=== PATIENT | male | born 1955 | race Caucasian/White ===

== ENCOUNTER 2017-09-22 16:31 | Inpatient (IN) | payer OTHER, SELFPAY ==
[2017-09-22 16:48] VITALS: BP 155/87; PULSE 80; RESP 18; TEMP 37.2; O2SAT 96
[2017-09-22 18:05] VITALS: BMI 23.1
[2017-09-22 18:19] VITALS: BMI 23.1
--- NOTE | 2017-09-22 18:43 | NURSING ---
PT ARRIVED FROM [facility] , TRANSPORTED BY
--- NOTE | 2017-09-22 19:47 | PCM.HP.STD ---
Problem List (1) Right middle cerebral artery stroke Status: Acute (2) Hemorrhagic cerebrovascular accident (CVA) Status: Acute (3) Acute respiratory failure Status: Acute (4) Pneumonia Status: Acute (5) Atrial fibrillation Status: Chronic (6) Atrial fibrillation with RVR Status: Chronic (7) Headache Status: Chronic (8) Hyperlipidemia Status: Chronic (9) Chronic pain Status: Chronic (10) Major depression Status: Chronic (11) Neuropathic pain Status: Chronic (12) Left hemiplegia Status: Acute (13) Hypertension Status: Chronic (14) Shortness of breath Status: Acute (15) Constipation Status: Acute (16) Thrush Status: Acute (17) Insomnia Status: Acute History of Present Illness Date of Admission: 09/22/17 Chief Complaint: Here for rehabilitation, strengthening, prior to discharge home with spouse. The patient is a 62 year old Male who had abrupt left side neglect 07/16/2017, taken to [facility], diagnosed with right MCA infarct with right M1 occlusion, treated with TPA, transferred to [facility]. His stay there was complicated with hemorrhagic conversion of his CVA, treated with Vitamin K and required decompressive right hemicraniectomy, history of respiratory failure requiring intubation, extubated 07/19/2017, but had to be reintubated a few days later and treated with antibiotics for pneumonia. On 07/23/2017, he had a trach and a PEG placed. During his stay, he was diagnosed with atrial fibrillation, felt to be likely etiology of his cerebrovascular infarct. Initial recommendation was to start anticoagulation on 09/03/2017, but then more recent recommendation moved anticoagulation dates to 4 weeks after stroke with recommendation to start Eliquis on 08/13/2017. He was already on aspirin, which was discontinued. Patient's echo showed EF 55%, no patent foramen ovale. He also had atrial fibrillation with RVR, Diltiazem caused bradycardia, and he was switched to amiodarone. Recommendation to stop amiodarone, transition to low dose Metoprolol for rate control. He was admitted to [facility] for inpatient rehab. 09/22/2017 Admit to TCU for continuation of rehabilitation, strengthening, prior to discharge home with spouse. Past Medical History Past Medical History (Chronic Problems): Chronic Problems Atrial fibrillation (Chronic) Atrial fibrillation with RVR (Chronic) Headache (Chronic) Hyperlipidemia (Chronic) Chronic pain (Chronic) Major depression (Chronic) Neuropathic pain (Chronic) Hypertension (Chronic) Allergies No Known Allergies Allergy (Verified 09/22/17 18:57) Home Medications: Ambulatory Orders Medication Instructions Recorded Acetaminophen 650 mg PO Q6H PRN 09/22/17 Apixaban [Eliquis] 5 mg PO BID 09/22/17 Atorvastatin Calcium 40 mg PO QHS 09/22/17 Famotidine 20 mg PO BID 09/22/17 Hydrocodone/Acetaminophen 1 each PO Q4H PRN PRN 09/22/17 [Hydrocodon-Acetaminophen 5-325] Lidocaine [Lidoderm Patch] 1 patch TOPICAL DAILY 09/22/17 Melatonin 3 mg PO QHS 09/22/17 Ondansetron [Zofran Odt] 4 mg PO Q4H PRN PRN 09/22/17 Polyethylene Glycol 3350 [Miralax] 17 gm PO DAILY 09/22/17 Trazodone HCl 50 mg PO QHS 09/22/17 Surgical History: - - Tracheostomy (discontinued), PEG tube (discontinued), right hemicraniectomy. Psychiatric History: Depression Lives: Spouse/ Significant Other Smoking Status: Never smoker Tobacco Use: Non-smoker Alcohol: None Drugs: None - *Family History Maternal History Items: Heart Disease Paternal History Items: Heart Disease Review of Systems Constitutional: Denies: Chills, Fever, Weight Change HEENT: Denies: Head Aches, Sinus Congestion, Sinus Drainage Cardiovascular: Denies: Chest Pain, Palpitations Respiratory: Denies: Cough, Shortness of breath at rest, Sputum production Gastrointestinal: Reports: Nausea. Denies: Abdominal Pain, Vomiting Genitourinary: Denies: Dysuria Musculoskeletal: Denies: Joint Pain, Joint Tenderness Skin: Denies: Rash, Wounds Neurological: Denies: Numbness, Tingling, Focal weakness Psychiatric: Denies: Anxiety, Depression, Homicidal Ideations, Suicidal Ideations Hematologic/ Lymphatic: Denies: Easy Bruising, Easy Bleeding VTE Information - Inpt Only VTE Present on Admission: No VTE Mechan Device Prophylaxis: Knee High ARIAN Hose VTE Pharm Prophylaxis ordered?: No Reason prophylaxis not ordered:: Treatment Not Indicated Patient Problems: Active and Suspected Problems Right middle cerebral artery stroke (Acute) Hemorrhagic cerebrovascular accident (CVA) (Acute) Acute respiratory failure (Acute) Pneumonia (Acute) Left hemiplegia (Acute) Shortness of breath (Acute) Constipation (Acute) Thrush (Acute) Insomnia (Acute) - Physical Exam General: Alert, Oriented x3, Cooperative HEENT: Atraumatic, PERRLA, EOMI, Normocephalic, - - Right hemicraniectomy defect. Neck: Supple, No JVD, Negative Carotid Bruits Lungs: Clear to auscultation, Normal air movement Cardiovascular: Regular rate, No murmurs Abdomen: Bowel Sounds Present, Soft, Non Tender Extremities: No edema, Capillary Refill Less than 3 Seconds Skin: No rashes, No breakdown Musculoskeletal: No Tenderness to Palpation of Joints or Extremities Neurological: Cranial nerves II-XII grossly intact, - - Left hemiplegia. Psych/Mental Status: Normal Affect, Appropriate Weight: 79.4 kg Body Mass Index (BMI) 23.1 Intake and Output for Last 24 Hours 09/20/17 09/21/17 09/22/17 23:59 23:59 23:59 Output Total 350 / 350 Balance -350 / -350 Assessment/Plan Active and Suspected Problems Right middle cerebral artery stroke (Acute) Hemorrhagic cerebrovascular accident (CVA) (Acute) Acute respiratory failure (Acute) Pneumonia (Acute) Left hemiplegia (Acute) Shortness of breath (Acute) Constipation (Acute) Thrush (Acute) Insomnia (Acute) 62 year old male with below past medical history hospitalized for right MCA stroke, hemorrhagic conversion of stroke after TPA, complicated by respiratory failure requiring intubation, tracheostomy, PEG tube placement, atrial fibrillation with RVR, admitted from [facility] to TCU for continuation of rehabilitation, strengthening, prior to discharge home with spouse. Debility - PT/OT. Cognition - ST. Pain - Tylenol 1000MG Q8H PRN mild pain, [place] 5/325MG 1 tablet QH PRN moderate pain. Bowel - Miralax 17GM daily. Adult immunization - Flushot, then Prevnar 13 and Pneumovax 23 as necessary. DVT prophylaxis - Not necessary, already on Eliquis. Stroke - Eliquis 5MG twice daily. Hyperlipidemia - Atorvastatin 40MG QHS. GERD - Famotidine 20MG BID. Left hip pain - Lidoderm patch 1 patch TD daily. Insomnia - Melatonin 3MG QHS, Trazodone 50MG QHS. Nausea - Zofran 4MG Q4H PRN.
--- NOTE | 2017-09-22 19:59 | HP.PCM_ITS ---
Problem List (1) Right middle cerebral artery stroke Status: Acute (2) Hemorrhagic cerebrovascular accident (CVA) Status: Acute (3) Acute respiratory failure Status: Acute (4) Pneumonia Status: Acute (5) Atrial fibrillation Status: Chronic (6) Atrial fibrillation with RVR Status: Chronic (7) Headache Status: Chronic (8) Hyperlipidemia Status: Chronic (9) Chronic pain Status: Chronic (10) Major depression Status: Chronic (11) Neuropathic pain Status: Chronic (12) Left hemiplegia Status: Acute (13) Hypertension Status: Chronic (14) Shortness of breath Status: Acute (15) Constipation Status: Acute (16) Thrush Status: Acute (17) Insomnia Status: Acute History of Present Illness Date of Admission: 09/22/17 Chief Complaint: Here for rehabilitation, strengthening, prior to discharge home with spouse. The patient is a 62 year old Male who had abrupt left side neglect 07/16/2017, taken to [facility], diagnosed with right MCA infarct with right M1 occlusion, treated with TPA, transferred to [facility]. His stay there was complicated with hemorrhagic conversion of his CVA, treated with Vitamin K and required decompressive right hemicraniectomy, history of respiratory failure requiring intubation, extubated 07/19/2017, but had to be reintubated a few days later and treated with antibiotics for pneumonia. On 07/23/2017, he had a trach and a PEG placed. During his stay, he was diagnosed with atrial fibrillation, felt to be likely etiology of his cerebrovascular infarct. Initial recommendation was to start anticoagulation on 09/03/2017, but then more recent recommendation moved anticoagulation dates to 4 weeks after stroke with recommendation to start Eliquis on 08/13/2017. He was already on aspirin, which was discontinued. Patient's echo showed EF 55%, no patent foramen ovale. He also had atrial fibrillation with RVR, Diltiazem caused bradycardia, and he was switched to amiodarone. Recommendation to stop amiodarone, transition to low dose Metoprolol for rate control. He was admitted to [facility] for inpatient rehab. 09/22/2017 Admit to TCU for continuation of rehabilitation, strengthening, prior to discharge home with spouse. Past Medical History Past Medical History (Chronic Problems): Chronic Problems Atrial fibrillation (Chronic) Atrial fibrillation with RVR (Chronic) Headache (Chronic) Hyperlipidemia (Chronic) Chronic pain (Chronic) Major depression (Chronic) Neuropathic pain (Chronic) Hypertension (Chronic) Allergies No Known Allergies Allergy (Verified 09/22/17 18:57) Home Medications: Ambulatory Orders Medication Instructions Recorded Acetaminophen 650 mg PO Q6H PRN 09/22/17 Apixaban [Eliquis] 5 mg PO BID 09/22/17 Atorvastatin Calcium 40 mg PO QHS 09/22/17 Famotidine 20 mg PO BID 09/22/17 Hydrocodone/Acetaminophen 1 each PO Q4H PRN PRN 09/22/17 [Hydrocodon-Acetaminophen 5-325] Lidocaine [Lidoderm Patch] 1 patch TOPICAL DAILY 09/22/17 Melatonin 3 mg PO QHS 09/22/17 Ondansetron [Zofran Odt] 4 mg PO Q4H PRN PRN 09/22/17 Polyethylene Glycol 3350 [Miralax] 17 gm PO DAILY 09/22/17 Trazodone HCl 50 mg PO QHS 09/22/17 Surgical History: - - Tracheostomy (discontinued), PEG tube (discontinued), right hemicraniectomy. Psychiatric History: Depression Lives: Spouse/ Significant Other Smoking Status: Never smoker Tobacco Use: Non-smoker Alcohol: None Drugs: None - *Family History Maternal History Items: Heart Disease Paternal History Items: Heart Disease Review of Systems Constitutional: Denies: Chills, Fever, Weight Change HEENT: Denies: Head Aches, Sinus Congestion, Sinus Drainage Cardiovascular: Denies: Chest Pain, Palpitations Respiratory: Denies: Cough, Shortness of breath at rest, Sputum production Gastrointestinal: Reports: Nausea. Denies: Abdominal Pain, Vomiting Genitourinary: Denies: Dysuria Musculoskeletal: Denies: Joint Pain, Joint Tenderness Skin: Denies: Rash, Wounds Neurological: Denies: Numbness, Tingling, Focal weakness Psychiatric: Denies: Anxiety, Depression, Homicidal Ideations, Suicidal Ideations Hematologic/ Lymphatic: Denies: Easy Bruising, Easy Bleeding VTE Information - Inpt Only VTE Present on Admission: No VTE Mechan Device Prophylaxis: Knee High ARIAN Hose VTE Pharm Prophylaxis ordered?: No Reason prophylaxis not ordered:: Treatment Not Indicated Patient Problems: Active and Suspected Problems Right middle cerebral artery stroke (Acute) Hemorrhagic cerebrovascular accident (CVA) (Acute) Acute respiratory failure (Acute) Pneumonia (Acute) Left hemiplegia (Acute) Shortness of breath (Acute) Constipation (Acute) Thrush (Acute) Insomnia (Acute) - Physical Exam General: Alert, Oriented x3, Cooperative HEENT: Atraumatic, PERRLA, EOMI, Normocephalic, - - Right hemicraniectomy defect. Neck: Supple, No JVD, Negative Carotid Bruits Lungs: Clear to auscultation, Normal air movement Cardiovascular: Regular rate, No murmurs Abdomen: Bowel Sounds Present, Soft, Non Tender Extremities: No edema, Capillary Refill Less than 3 Seconds Skin: No rashes, No breakdown Musculoskeletal: No Tenderness to Palpation of Joints or Extremities Neurological: Cranial nerves II-XII grossly intact, - - Left hemiplegia. Psych/Mental Status: Normal Affect, Appropriate Weight: 79.4 kg Body Mass Index (BMI) 23.1 Intake and Output for Last 24 Hours 09/20/17 09/21/17 09/22/17 23:59 23:59 23:59 Output Total 350 / 350 Balance -350 / -350 Assessment/Plan Active and Suspected Problems Right middle cerebral artery stroke (Acute) Hemorrhagic cerebrovascular accident (CVA) (Acute) Acute respiratory failure (Acute) Pneumonia (Acute) Left hemiplegia (Acute) Shortness of breath (Acute) Constipation (Acute) Thrush (Acute) Insomnia (Acute) 62 year old male with below past medical history hospitalized for right MCA stroke, hemorrhagic conversion of stroke after TPA, complicated by respiratory failure requiring intubation, tracheostomy, PEG tube placement, atrial fibrillation with RVR, admitted from [facility] to TCU for continuation of rehabilitation, strengthening, prior to discharge home with spouse. * Debility - PT/OT. * Cognition - ST. * Pain - Tylenol 1000MG Q8H PRN mild pain, [place] 5/325MG 1 tablet QH PRN moderate pain. * Bowel - Miralax 17GM daily. * Adult immunization - Flushot, then Prevnar 13 and Pneumovax 23 as necessary. * DVT prophylaxis - Not necessary, already on Eliquis. * Stroke - Eliquis 5MG twice daily. * Hyperlipidemia - Atorvastatin 40MG QHS. * GERD - Famotidine 20MG BID. * Left hip pain - Lidoderm patch 1 patch TD daily. * Insomnia - Melatonin 3MG QHS, Trazodone 50MG QHS. * Nausea - Zofran 4MG Q4H PRN.
[2017-09-22] MEDS: Atorvastatin Calcium 40 MG Tablet PO (21:04)
[2017-09-22] MEDS: traZODone 50 MG Tablet PO (21:05)
[2017-09-22] MEDS: MELATONIN 3 MG TABLET PO (21:05)
[2017-09-22] MEDS: APIXABAN 5 MG TABLET PO (21:05)
[2017-09-22] MEDS: Famotidine 20 MG Tablet PO (21:05)
[2017-09-22 22:00] VITALS: PULSE 76
[2017-09-23] MEDS: Nystatin Powder 15gm Bottle 1 APPLIC TOPICAL ×2 (05:58→21:27)
[2017-09-23] MEDS: Polyethylene Glycol 3350 17 GM PACKET PO (05:58)
[2017-09-23] MEDS: APIXABAN 5 MG TABLET PO ×2 (05:58→17:25)
[2017-09-23] MEDS: Famotidine 20 MG Tablet PO ×2 (05:58→17:24)
[2017-09-23] MEDS: Lidocaine 5% Patch 1 PATCH TOPICAL (06:01)
[2017-09-23] MEDS: HYDROcodone Bitartrate/Apap 5/325 Tablet PO ×2 (06:05→12:12)
[2017-09-23 06:13] LABS: Absolute Lymphocyte Count 1.39 X10^3/ul (0.83-4.51); Absolute Neutrophil Count 2.6 X10^3/uL (2.0-7.7); Basophil# 0.02 X10^3/uL; Basophil% 0.4 % (0-1); Eosinophil# 0.18 X10^3/uL; Eosinophils% 3.7 % (0-5); Hematocrit 39.2 % (40-54); Hemoglobin 13.1 g/dl (13.0-16.5); Lymphocyte # 1.39 X10^3/ul (4.0); Lymphocyte % 28.3 % (19-41); Mean Corp Hgb Conc 33.4 g/gl (32-36); Mean Corpuscular Volume 92.9 fL (80-94); Mean Platelet Vol. 9.6 fl (6.2-12.0); Monocyte# 0.75 X10^3/uL; Monocyte% 15.2 % (0-10); Neutrophil # 2.57 X10^3/uL (2.7-7.7); Neutrophil % 52.2 % (47-70); Platelet Count 258 K/mm3 (150-450); RBC Distribution Width CV 13.4 % (11.6-14.6); RBC Distribution Width SD 44.3 fl (35.1-43.9); Red Blood Count 4.22 M/mm3 (4.6-6.2); White Blood Count 4.9 K/mm3 (4.4-11.0)
[2017-09-23 06:17] LABS: POSITIVE COUNT NO; POSITIVE DIFFERENTIAL NO; POSITIVE MORPHOLOGY NO
[2017-09-23 06:22] LABS: Anion Gap 6 (5-15); BUN 13 mg/dL (7-18); BUN/Creat Ratio 14.2 RATIO (10-20); Calcium,Total 9.8 mg/dL (8.5-10.1); Chloride 100 mmol/L (98-107); Creatinine, Serum 0.91 mg/dL (0.70-1.30); EST Glomerular Filtration Rate 89 mL/min (>60); Est Glom Filt Rate - Afr Amer 107 mL/min (>60); Glucose 95 mg/dL (70-110); Potassium 3.6 mmol/L (3.5-5.1); Sodium Level 139 mmol/L (136-145)
[2017-09-23] MEDS: Tuberculin,Purif.prot.deriv. 50 TU/ML Vial 5 ML ID (12:04)
[2017-09-23] MEDS: Menthol/Lanolin/Calamine/Znox 113 GM Tube 1 APPLIC TOPICAL ×2 (12:06→21:27)
[2017-09-23 16:00] VITALS: BP 139/74; PULSE 70; RESP 18; TEMP 36.9; O2SAT 96
--- NOTE | 2017-09-23 18:15 | NURSING ---
R' C/O BURNING WITH URINATION. NOTIFIED DR TURNER- ORDER FOR UA C+S VIA ST CATH.
[2017-09-23 18:48] LABS: Bacteria 0 SEEN /hpf (None Seen); Mucous, Urine 0 SEEN /hpf (<or=2+); White Blood Cells 0 SEEN /hpf (0-5)
[2017-09-23 18:53] LABS: Color, Urine Yellow (Yellow); Glucose, Dipstick Normal (Normal); Ketone-Dipstick Negative (Negative); Leukocyte Esterase-Dipstick Negative /ul (Negative); Nitrite-Dipstick Negative (Negative); Occult Blood-Urine 10 /ul (Negative); Protein-Dipstick Negative (Negative); Urine Bilirubin Dipstick Negative (Negative); Urine Clarity Sl. Cloudy (Clear); Urine Urobilinogen Normal (Normal)
[2017-09-23 19:00] LABS: Amorphous Sediment 2+ PHOS; Red Blood Cells-Urine 0-5 SEEN /hpf (0-5); Squamous Epithelial Cells - UA 0-5 SEEN /hpf (0-5)
[2017-09-23] MEDS: Ondansetron ODT 4 MG Tablet PO (20:14)
[2017-09-23] MEDS: Atorvastatin Calcium 40 MG Tablet PO (21:24)
[2017-09-23] MEDS: traZODone 50 MG Tablet PO (21:24)
[2017-09-23] MEDS: MELATONIN 3 MG TABLET PO (21:24)
[2017-09-24] MEDS: Polyethylene Glycol 3350 17 GM PACKET PO (05:34)
[2017-09-24] MEDS: Lidocaine 5% Patch 1 PATCH TOPICAL (05:37)
[2017-09-24] MEDS: Famotidine 20 MG Tablet PO ×2 (05:37→18:09)
[2017-09-24] MEDS: APIXABAN 5 MG TABLET PO ×2 (05:37→18:09)
[2017-09-24] MEDS: Nystatin Powder 15gm Bottle 1 APPLIC TOPICAL ×2 (05:43→22:15)
[2017-09-24] MEDS: Menthol/Lanolin/Calamine/Znox 113 GM Tube 1 APPLIC TOPICAL ×3 (05:43→22:14)
[2017-09-24] MEDS: HYDROcodone Bitartrate/Apap 5/325 Tablet PO ×2 (09:04→18:16)
[2017-09-24] MEDS: Ondansetron ODT 4 MG Tablet PO ×2 (09:10→18:16)
[2017-09-24] MEDS: Acetaminophen 500 MG Tablet 1000 MG PO (11:34)
--- NOTE | 2017-09-24 12:42 | NURSING ---
Pt c/o feeling constipated, last BM 09/20/17, Dr. Fernández updated, N.O. for Mag Citrate, pt aware.
--- NOTE | 2017-09-24 12:47 | CASEMGMT ---
Insurance Clinical information faxed. Pending continued stay approval at this time. Auth#[id number] Christal TERRAZAS, HEAD PORTER
[2017-09-24] MEDS: Magnesium Citrate 300 ML PO (12:53)
--- NOTE | 2017-09-24 15:10 | RAD_ITS ---
STUDY: X-RAY - LEFT SHOULDER REASON FOR EXAM: Male, 62 years old. Shoulder pain. TECHNIQUE: 2 view(s) of the shoulder. COMPARISON: None. FINDINGS: Normal glenohumeral articulation. There is degenerative arthrosis of the acromioclavicular joint without inferior osseous spur formation. Normal acromion. Normal humeral head and visualized proximal humerus. The soft tissue structures are unremarkable. Increased markings at the left lung base suggestive of atelectasis. RAD/Shoulder min 2 Views IMPRESSION: Degenerative changes of the acromioclavicular joint. Electronically Signed: Eb Rogel MD at 15:30 EST Tel [phone], Service support ,
[2017-09-24 16:00] VITALS: BP 146/80; PULSE 77; RESP 18; TEMP 37.1; O2SAT 92
[2017-09-24] MEDS: Atorvastatin Calcium 40 MG Tablet PO (22:09)
[2017-09-24] MEDS: MELATONIN 3 MG TABLET PO (22:09)
[2017-09-24] MEDS: traZODone 50 MG Tablet PO (22:09)
[2017-09-25] MEDS: HYDROcodone Bitartrate/Apap 5/325 Tablet PO ×3 (00:08→17:11)
[2017-09-25] MEDS: Polyethylene Glycol 3350 17 GM PACKET PO (06:31)
[2017-09-25] MEDS: Lidocaine 5% Patch 1 PATCH TOPICAL (06:33)
[2017-09-25] MEDS: Famotidine 20 MG Tablet PO ×2 (06:33→17:12)
[2017-09-25] MEDS: APIXABAN 5 MG TABLET PO ×2 (06:33→17:11)
[2017-09-25] MEDS: Nystatin Powder 15gm Bottle 1 APPLIC TOPICAL ×2 (06:33→21:43)
[2017-09-25] MEDS: Menthol/Lanolin/Calamine/Znox 113 GM Tube 1 APPLIC TOPICAL ×3 (06:33→21:42)
[2017-09-25] MEDS: Bisacodyl 10 MG Suppository RECTAL (13:13)
[2017-09-25 15:54] VITALS: BP 132/67; PULSE 84; RESP 16; TEMP 36.4; O2SAT 95
[2017-09-25] MEDS: Atorvastatin Calcium 40 MG Tablet PO (21:41)
[2017-09-25] MEDS: traZODone 50 MG Tablet PO (21:42)
[2017-09-25] MEDS: MELATONIN 3 MG TABLET PO (21:42)
[2017-09-26] MEDS: Lidocaine 5% Patch 1 PATCH TOPICAL (06:21)
[2017-09-26] MEDS: Famotidine 20 MG Tablet PO ×2 (06:21→16:48)
[2017-09-26] MEDS: Polyethylene Glycol 3350 17 GM PACKET PO (06:21)
[2017-09-26] MEDS: APIXABAN 5 MG TABLET PO ×2 (06:21→16:48)
[2017-09-26] MEDS: Nystatin Powder 15gm Bottle 1 APPLIC TOPICAL ×2 (06:22→21:00)
[2017-09-26] MEDS: Menthol/Lanolin/Calamine/Znox 113 GM Tube 1 APPLIC TOPICAL ×3 (06:22→21:00)
--- NOTE | 2017-09-26 11:51 | NURSING ---
Dr. Fernández aware of final urine culture results, NNO
[2017-09-26 16:00] VITALS: BP 135/75; PULSE 74; RESP 20; TEMP 36.7; O2SAT 96
[2017-09-26] MEDS: traZODone 50 MG Tablet PO (21:00)
[2017-09-26] MEDS: Atorvastatin Calcium 40 MG Tablet PO (21:00)
[2017-09-26] MEDS: MELATONIN 3 MG TABLET PO (21:00)
[2017-09-26] MEDS: HYDROcodone Bitartrate/Apap 5/325 Tablet PO (22:50)
[2017-09-27] MEDS: Ondansetron ODT 4 MG Tablet PO ×3 (01:31→20:46)
[2017-09-27] MEDS: HYDROcodone Bitartrate/Apap 5/325 Tablet PO ×2 (04:46→20:37)
[2017-09-27] MEDS: Menthol/Lanolin/Calamine/Znox 113 GM Tube 1 APPLIC TOPICAL ×3 (04:49→20:38)
[2017-09-27] MEDS: Nystatin Powder 15gm Bottle 1 APPLIC TOPICAL ×2 (04:50→20:38)
[2017-09-27] MEDS: Lidocaine 5% Patch 1 PATCH TOPICAL (04:50)
[2017-09-27] MEDS: Polyethylene Glycol 3350 17 GM PACKET PO (04:50)
[2017-09-27] MEDS: APIXABAN 5 MG TABLET PO ×2 (04:50→16:58)
[2017-09-27] MEDS: Famotidine 20 MG Tablet PO ×2 (04:50→16:58)
--- NOTE | 2017-09-27 10:49 | NURSING ---
dr madden in to speak with pt this AM regarding d/t insomnia. Dr madden added neurontin.
--- NOTE | 2017-09-27 14:55 | CHAPLAIN ---
Type of Pastoral Visit _x__ Initial Visit ___ Follow-up Visit ___ On-call Visit ___ General Patient Visit ___ Spiritual Assessment ___ Family Conference ___ Bereavement ___ Rapid Response ___ Code Blue ___ Other (describe below) Pastoral Care Referral From _x__ Patient ___ Family ___ Nurse ___ Physician ___ Inspector Missile ___ Photo Mask Inspector ___ Other (describe below) Sacrament/Intervention ___ Active listening ___ Anointing ___ Taoism ___ Bereavement ___ Communion ___ Nessa exploration ___ ___ Life review ___ Prayer ___ Reconciliation ___ Sacrament of Sick _x__ Supportive presence ___ Wedding ___ Other (describe below) Pastoral Comments visitors were in room including spouse; made introduction; pt and family are agreeable for future visits and support
[2017-09-27 15:38] VITALS: BP 122/69; PULSE 72; RESP 18; TEMP 36.6; O2SAT 94
--- NOTE | 2017-09-27 16:21 | CASEMGMT ---
Insurance Continued stay approved with next update due on 10/01/17. Auth#[id number] Christal TERRAZAS, BEHAVIOR ANALYST
[2017-09-27] MEDS: Atorvastatin Calcium 40 MG Tablet PO (20:37)
[2017-09-27] MEDS: MELATONIN 3 MG TABLET PO (20:37)
[2017-09-27] MEDS: Gabapentin 300 MG Capsule PO (20:37)
[2017-09-27] MEDS: traZODone 50 MG Tablet PO (20:37)
[2017-09-28] MEDS: APIXABAN 5 MG TABLET PO ×2 (05:30→17:21)
[2017-09-28] MEDS: Famotidine 20 MG Tablet PO ×2 (05:30→17:21)
[2017-09-28] MEDS: Polyethylene Glycol 3350 17 GM PACKET PO (05:30)
[2017-09-28] MEDS: Lidocaine 5% Patch 1 PATCH TOPICAL (05:31)
[2017-09-28] MEDS: Menthol/Lanolin/Calamine/Znox 113 GM Tube 1 APPLIC TOPICAL ×3 (05:31→21:02)
[2017-09-28] MEDS: Nystatin Powder 15gm Bottle 1 APPLIC TOPICAL ×2 (05:31→21:02)
[2017-09-28] MEDS: HYDROcodone Bitartrate/Apap 5/325 Tablet PO ×3 (09:19→20:52)
--- NOTE | 2017-09-28 10:54 | PCM.PN.RX ---
<Zheng Cochran D - Last Filed: 09/28/17 10:54> Progress Note - Pharmacy Subjective: TCU Admission Objective: Allergies No Known Allergies Allergy (Verified 09/22/17 18:57) Home Medications Medication Instructions Recorded Acetaminophen 650 mg PO Q6H PRN 09/22/17 Apixaban [Eliquis] 5 mg PO BID 09/22/17 Atorvastatin Calcium 40 mg PO QHS 09/22/17 Famotidine 20 mg PO BID 09/22/17 Hydrocodone/Acetaminophen 1 each PO Q4H PRN PRN 09/22/17 [Hydrocodon-Acetaminophen 5-325] Lidocaine [Lidoderm Patch] 1 patch TOPICAL DAILY 09/22/17 Melatonin 3 mg PO QHS 09/22/17 Ondansetron [Zofran Odt] 4 mg PO Q4H PRN PRN 09/22/17 Polyethylene Glycol 3350 [Miralax] 17 gm PO DAILY 09/22/17 Trazodone HCl 50 mg PO QHS 09/22/17 Current Medications Generic Name Dose Route Start Last Admin Trade Name Freq PRN Reason Stop Dose Admin Acetaminophen 1,000 mg 09/22/17 20:24 09/24/17 11:34 Tylenol PO 1,000 mg Q8H PRN Administration MILD PAIN (1-3/10) Hydrocodone Bitart/Acetaminophen 1 tablet 09/22/17 16:57 09/28/17 09:19 Bedrock 5mg-325mg PO 1 tablet Q4H PRN PRN Administration MODERATE PAIN (4-5/10) Apixaban 5 mg 09/22/17 18:00 09/28/17 05:30 Eliquis PO 5 mg BID JOAN Administration Atorvastatin Calcium 40 mg 09/22/17 22:00 09/27/17 20:37 Lipitor PO 40 mg QHS JOAN Administration Bisacodyl 10 mg 09/25/17 08:13 09/25/17 13:13 Dulcolax RECTAL 10 mg DAILY PRN Administration Constipation Calamine/Phenol 1 applic 09/23/17 06:00 09/28/17 05:31 Calmoseptine Ointment TOPICAL 1 applicatio TID JOAN Administration Protocol Famotidine 20 mg 09/22/17 18:00 09/28/17 05:30 Pepcid PO 20 mg BID JOAN Administration Gabapentin 300 mg 09/27/17 22:00 09/27/17 20:37 Neurontin PO 300 mg QHS JOAN Administration Lidocaine 1 patch 09/28/17 06:00 09/28/17 05:31 Lidoderm Patch TOPICAL 1 patch DAILY JOAN Administration Protocol Melatonin 3 mg 09/22/17 22:00 09/27/17 20:37 Melatonin PO 3 mg QHS JOAN Administration Menthol 1 applic 09/25/17 08:41 09/26/17 12:18 Bengay Vanishing Scent TOPICAL 1 applic TID PRN PRN Administration PAIN Nystatin 1 applic 09/23/17 06:00 09/28/17 05:31 Mycostatin Powder TOPICAL 1 applicatio 0600,2200 JOAN Administration Protocol Ondansetron HCl 4 mg 09/22/17 16:57 09/27/17 20:46 Zofran Odt PO 4 mg Q4H PRN PRN Administration NAUSEA Polyethylene Glycol 17 gm 09/23/17 06:00 09/28/17 05:30 Miralax PO 17 gm DAILY JOAN Administration Trazodone HCl 50 mg 09/22/17 22:00 09/27/17 20:37 Desyrel PO 50 mg QHS JOAN Administration Tuberculin PPD 5 tu 09/30/17 10:00 Tubersol, Aplisol, Ppd ID 09/30/17 10:01 X1 ONE Problem List Right middle cerebral artery stroke (Acute) Hemorrhagic cerebrovascular accident (CVA) (Acute) Acute respiratory failure (Acute) Pneumonia (Acute) Atrial fibrillation (Chronic) Atrial fibrillation with RVR (Chronic) Headache (Chronic) Hyperlipidemia (Chronic) Chronic pain (Chronic) Major depression (Chronic) Neuropathic pain (Chronic) Left hemiplegia (Acute) Hypertension (Chronic) Shortness of breath (Acute) Constipation (Acute) Thrush (Acute) Insomnia (Acute) Vital Signs Temp Pulse Resp BP Pulse Ox 97.9 F 72 18 122/69 H 94 09/27/17 15:38 09/27/17 15:38 09/27/17 15:38 09/27/17 15:38 09/27/17 15:38 Oxygen Delivery Method Room Air Weight: 79.4 kg Body Mass Index (BMI) 23.1 Sodium 139 mmol/L (136-145) 09/23/17 05:10 Potassium 3.6 mmol/L (3.5-5.1) 09/23/17 05:10 Chloride 100 mmol/L (98-107) 09/23/17 05:10 Carbon Dioxide 33.0 mmol/L (21.0-32.0) H 09/23/17 05:10 Anion Gap 6 (5-15) 09/23/17 05:10 BUN 13 mg/dL (7-18) 09/23/17 05:10 Creatinine 0.91 mg/dL (0.70-1.30) 09/23/17 05:10 Est GFR (MDRD) Af Amer 107 mL/min (>60) 09/23/17 05:10 Est GFR (MDRD) Non-Af 89 mL/min (>60) 09/23/17 05:10 BUN/Creatinine Ratio 14.2 RATIO (10-20) 09/23/17 05:10 Glucose 95 mg/dL (70-110) 09/23/17 05:10 Assessment/Plan: 1) Pain APAP for mild pain, hydrocodone/APAP for moderate pain, gabapentin, lidocaine patch. Continue to monitor daily pain scores, prn medication use. 2) Stroke Apixaban twice daily, atorvastatin at HS. Hgb/Hct stable at baseline, no lipids or hepatic enzymes in EMR. Continue to monitor renal function, s/s bleeding, lipids, hepatic enzymes. 3) GI Famotidine twice daily, ondansetron prn. Continue to monitor prn medication use, for s/s GI distress. 4) Derm Calmoseptine, Bengay, nystatin powder. Continue to monitor clinically. 5) Sleep Melatonin, trazodone. Continue to monitor for insomnia. Psychotropic Medications: None Unnecessary Medications: None Bowel Regimen: 6) PEG, prn bisacodyl. Continue to monitor prn medication use, for constipation/diarrhea. Date of Note:: 09/28/17 - Provider Comments Provider responsibility: Provider responsible to enter orders to implement recommendations <Gelacio Fernández Chi - Last Filed: 09/28/17 17:52> Progress Note - Pharmacy Subjective: [] Objective: Allergies No Known Allergies Allergy (Verified 09/22/17 18:57) Home Medications Medication Instructions Recorded Acetaminophen 650 mg PO Q6H PRN 09/22/17 Apixaban [Eliquis] 5 mg PO BID 09/22/17 Atorvastatin Calcium 40 mg PO QHS 09/22/17 Famotidine 20 mg PO BID 09/22/17 Hydrocodone/Acetaminophen 1 each PO Q4H PRN PRN 09/22/17 [Hydrocodon-Acetaminophen 5-325] Lidocaine [Lidoderm Patch] 1 patch TOPICAL DAILY 09/22/17 Melatonin 3 mg PO QHS 09/22/17 Ondansetron [Zofran Odt] 4 mg PO Q4H PRN PRN 09/22/17 Polyethylene Glycol 3350 [Miralax] 17 gm PO DAILY 09/22/17 Trazodone HCl 50 mg PO QHS 09/22/17 Current Medications Generic Name Dose Route Start Last Admin Trade Name Freq PRN Reason Stop Dose Admin Acetaminophen 1,000 mg 09/22/17 20:24 09/24/17 11:34 Tylenol PO 1,000 mg Q8H PRN Administration MILD PAIN (1-3/10) Hydrocodone Bitart/Acetaminophen 1 tablet 09/22/17 16:57 09/28/17 14:52 Bedrock 5mg-325mg PO 1 tablet Q4H PRN PRN Administration MODERATE PAIN (4-5/10) Apixaban 5 mg 09/22/17 18:00 09/28/17 17:21 Eliquis PO 5 mg BID JOAN Administration Atorvastatin Calcium 40 mg 09/22/17 22:00 09/27/17 20:37 Lipitor PO 40 mg QHS JOAN Administration Bisacodyl 10 mg 09/25/17 08:13 09/25/17 13:13 Dulcolax RECTAL 10 mg DAILY PRN Administration Constipation Calamine/Phenol 1 applic 09/23/17 06:00 09/28/17 12:21 Calmoseptine Ointment TOPICAL 1 applicatio TID JOAN Administration Protocol Famotidine 20 mg 09/22/17 18:00 09/28/17 17:21 Pepcid PO 20 mg BID JOAN Administration Gabapentin 300 mg 09/27/17 22:00 09/27/17 20:37 Neurontin PO 300 mg QHS JOAN Administration Lidocaine 1 patch 09/28/17 06:00 09/28/17 05:31 Lidoderm Patch TOPICAL 1 patch DAILY JOAN Administration Protocol Melatonin 3 mg 09/22/17 22:00 09/27/17 20:37 Melatonin PO 3 mg QHS JOAN Administration Menthol 1 applic 09/25/17 08:41 02/06/18 12:18 Bengay Vanishing Scent TOPICAL 1 applic TID PRN PRN Administration PAIN Nystatin 1 applic 09/23/17 06:00 09/28/17 05:31 Mycostatin Powder TOPICAL 1 applicatio 0600,2200 JOAN Administration Protocol Ondansetron HCl 4 mg 09/22/17 16:57 09/28/17 12:18 Zofran Odt PO 4 mg Q4H PRN PRN Administration NAUSEA Polyethylene Glycol 17 gm 09/23/17 06:00 09/28/17 05:30 Miralax PO 17 gm DAILY JOAN Administration Trazodone HCl 50 mg 09/22/17 22:00 09/27/17 20:37 Desyrel PO 50 mg QHS JOAN Administration Tuberculin PPD 5 tu 09/30/17 10:00 Tubersol, Aplisol, Ppd ID 09/30/17 10:01 X1 ONE Problem List Chronic pain (Chronic) Hyperlipidemia (Chronic) Headache (Chronic) Atrial fibrillation with RVR (Chronic) Atrial fibrillation (Chronic) Pneumonia (Acute) Acute respiratory failure (Acute) Hemorrhagic cerebrovascular accident (CVA) (Acute) Insomnia (Acute) Thrush (Acute) Constipation (Acute) Shortness of breath (Acute) Hypertension (Chronic) Left hemiplegia (Acute) Neuropathic pain (Chronic) Major depression (Chronic) Right middle cerebral artery stroke (Acute) Vital Signs Temp Pulse Resp BP Pulse Ox 98.3 F 79 18 152/80 H 95 09/28/17 15:19 09/28/17 15:19 09/28/17 15:19 09/28/17 15:19 09/28/17 15:19 Oxygen Delivery Method Room Air Weight: 79.4 kg Body Mass Index (BMI) 23.1 Sodium 139 mmol/L (136-145) 09/23/17 05:10 Potassium 3.6 mmol/L (3.5-5.1) 09/23/17 05:10 Chloride 100 mmol/L (98-107) 09/23/17 05:10 Carbon Dioxide 33.0 mmol/L (21.0-32.0) H 09/23/17 05:10 Anion Gap 6 (5-15) 09/23/17 05:10 BUN 13 mg/dL (7-18) 09/23/17 05:10 Creatinine 0.91 mg/dL (0.70-1.30) 09/23/17 05:10 Est GFR (MDRD) Af Amer 107 mL/min (>60) 09/23/17 05:10 Est GFR (MDRD) Non-Af 89 mL/min (>60) 09/23/17 05:10 BUN/Creatinine Ratio 14.2 RATIO (10-20) 09/23/17 05:10 Glucose 95 mg/dL (70-110) 09/23/17 05:10 Assessment/Plan: Psychotropic Medications: Unnecessary Medications: Bowel Regimen: - Provider Comments Provider responsibility: Provider responsible to enter orders to implement recommendations Provider Comments to Recommendations by Pharmacy: Agree
[2017-09-28] MEDS: Ondansetron ODT 4 MG Tablet PO ×2 (12:18→20:52)
--- NOTE | 2017-09-28 14:51 | CASEMGMT ---
Brief interview for mental status (BIMS) and resident mood interview (PHQ-9) completed on this day. BIMS score 07/07. PHQ-9 score 02/16
[2017-09-28 15:19] VITALS: BP 152/80; PULSE 79; RESP 18; TEMP 36.8; O2SAT 95
[2017-09-28] MEDS: Gabapentin 300 MG Capsule PO (20:51)
[2017-09-28] MEDS: traZODone 50 MG Tablet PO (20:52)
[2017-09-28] MEDS: MELATONIN 3 MG TABLET PO (20:52)
[2017-09-28] MEDS: Atorvastatin Calcium 40 MG Tablet PO (20:52)
[2017-09-29] MEDS: Lidocaine 5% Patch 1 PATCH TOPICAL (06:21)
[2017-09-29] MEDS: Polyethylene Glycol 3350 17 GM PACKET PO (06:21)
[2017-09-29] MEDS: HYDROcodone Bitartrate/Apap 5/325 Tablet PO ×3 (06:21→15:32)
[2017-09-29] MEDS: Famotidine 20 MG Tablet PO ×2 (06:21→17:29)
[2017-09-29] MEDS: APIXABAN 5 MG TABLET PO ×2 (06:22→17:30)
[2017-09-29] MEDS: Nystatin Powder 15gm Bottle 1 APPLIC TOPICAL ×2 (06:33→22:26)
[2017-09-29] MEDS: Menthol/Lanolin/Calamine/Znox 113 GM Tube 1 APPLIC TOPICAL ×3 (06:33→22:25)
[2017-09-29] MEDS: Ondansetron ODT 4 MG Tablet PO ×2 (07:10→18:38)
--- NOTE | 2017-09-29 10:58 | CASEMGMT ---
Plan of care meeting held. Resident present as well as resident family. No discharge date set at this time. Resident plans to continue with further care and treatment on the Transitional Care Unit. Resident hopes to be able to return home with spouse at time of discharge. Support given. Will continue to follow. Christal TERRAZAS, MOTOR TUNE UP SPECIALIST
[2017-09-29 16:00] VITALS: BP 146/92; PULSE 81; RESP 20; TEMP 37.3; O2SAT 96
--- NOTE | 2017-09-29 18:21 | NURSING ---
Per otologist change diet to cardiac
[2017-09-29] MEDS: Gabapentin 300 MG Capsule PO (22:22)
[2017-09-29] MEDS: traZODone 50 MG Tablet PO (22:22)
[2017-09-29] MEDS: Atorvastatin Calcium 40 MG Tablet PO (22:22)
[2017-09-29] MEDS: MELATONIN 3 MG TABLET PO (22:26)
[2017-09-30 05:54] LABS: Absolute Lymphocyte Count 1.34 X10^3/ul (0.83-4.51); Basophil# 0.03 X10^3/uL; Basophil% 0.6 % (0-1); Eosinophil# 0.18 X10^3/uL; Eosinophils% 3.3 % (0-5); Hematocrit 42.2 % (40-54); Lymphocyte # 1.34 X10^3/ul (4.0); Lymphocyte % 24.7 % (19-41); Mean Corp Hgb Conc 33.2 g/gl (32-36); Mean Corpuscular Hgb 30.7 pg (27.0-32.0); Mean Corpuscular Volume 92.5 fL (80-94); Mean Platelet Vol. 9.7 fl (6.2-12.0); Monocyte# 0.86 X10^3/uL; Monocyte% 15.8 % (0-10); Neutrophil # 2.99 X10^3/uL (2.7-7.7); Platelet Count 279 K/mm3 (150-450); RBC Distribution Width CV 13.2 % (11.6-14.6); RBC Distribution Width SD 44.1 fl (35.1-43.9); Red Blood Count 4.56 M/mm3 (4.6-6.2); White Blood Count 5.4 K/mm3 (4.4-11.0)
[2017-09-30] MEDS: Polyethylene Glycol 3350 17 GM PACKET PO (05:56)
[2017-09-30] MEDS: APIXABAN 5 MG TABLET PO ×2 (05:57→18:21)
[2017-09-30] MEDS: Lidocaine 5% Patch 1 PATCH TOPICAL (05:57)
[2017-09-30] MEDS: Famotidine 20 MG Tablet PO ×2 (05:57→18:21)
[2017-09-30 06:02] LABS: POSITIVE COUNT NO; POSITIVE DIFFERENTIAL NO; POSITIVE MORPHOLOGY NO
[2017-09-30] MEDS: Nystatin Powder 15gm Bottle 1 APPLIC TOPICAL ×2 (06:06→21:07)
[2017-09-30] MEDS: Menthol/Lanolin/Calamine/Znox 113 GM Tube 1 APPLIC TOPICAL ×3 (06:06→21:07)
[2017-09-30 06:21] LABS: Anion Gap 7 (5-15); BUN 9 mg/dL (7-18); BUN/Creat Ratio 9.9 RATIO (10-20); Calcium,Total 9.9 mg/dL (8.5-10.1); Chloride 104 mmol/L (98-107); Creatinine, Serum 0.91 mg/dL (0.70-1.30); EST Glomerular Filtration Rate 89 mL/min (>60); Est Glom Filt Rate - Afr Amer 107 mL/min (>60); Glucose 98 mg/dL (74-106); Potassium 3.8 mmol/L (3.5-5.1); Sodium Level 142 mmol/L (136-145)
[2017-09-30] MEDS: HYDROcodone Bitartrate/Apap 5/325 Tablet PO ×2 (11:00→18:20)
[2017-09-30] MEDS: Tuberculin,Purif.prot.deriv. 50 TU/ML Vial 5 ML ID (11:01)
[2017-09-30 16:00] VITALS: BP 153/73; PULSE 77; RESP 20; TEMP 36.6; O2SAT 94
--- NOTE | 2017-09-30 16:42 | CHAPLAIN ---
Type of Pastoral Visit ___ Initial Visit _x__ Follow-up Visit ___ On-call Visit ___ General Patient Visit ___ Spiritual Assessment ___ Family Conference ___ Bereavement ___ Rapid Response ___ Code Blue ___ Other (describe below) Pastoral Care Referral From _x__ Patient _x__ Family ___ Nurse ___ Physician ___ Registered Nurse Hh Case Manager ___ Scalemaker ___ Other (describe below) Sacrament/Intervention _x__ Active listening ___ Anointing ___ Roman Catholic ___ Bereavement ___ Communion _x__ Nessa exploration ___ _x__ Life review _x__ Prayer ___ Reconciliation ___ Sacrament of Sick _x__ Supportive presence ___ Wedding ___ Other (describe below) Pastoral Comments Family members with patient; family says that pt is 'grumpy' today but pt denies it; family is anxious for another surgery to take place in near future; pt says his goal is to gain strength and walk; all hope for the day when pt can go home; pt says that his nessa in God has actually gotten stronger through this; pt is open to future visits
[2017-09-30] MEDS: Gabapentin 300 MG Capsule PO (21:03)
[2017-09-30] MEDS: MELATONIN 3 MG TABLET PO (21:03)
[2017-09-30] MEDS: Atorvastatin Calcium 40 MG Tablet PO (21:03)
[2017-09-30] MEDS: traZODone 50 MG Tablet PO (21:03)
[2017-10-01] MEDS: Polyethylene Glycol 3350 17 GM PACKET PO (06:24)
[2017-10-01] MEDS: Lidocaine 5% Patch 1 PATCH TOPICAL (06:27)
[2017-10-01] MEDS: Famotidine 20 MG Tablet PO ×2 (06:27→17:18)
[2017-10-01] MEDS: APIXABAN 5 MG TABLET PO ×2 (06:27→17:19)
[2017-10-01] MEDS: Menthol/Lanolin/Calamine/Znox 113 GM Tube 1 APPLIC TOPICAL ×3 (06:28→21:57)
[2017-10-01] MEDS: Nystatin Powder 15gm Bottle 1 APPLIC TOPICAL ×2 (06:28→21:56)
[2017-10-01] MEDS: HYDROcodone Bitartrate/Apap 5/325 Tablet PO ×3 (09:33→23:33)
[2017-10-01] MEDS: Ondansetron ODT 4 MG Tablet PO ×2 (10:05→22:09)
--- NOTE | 2017-10-01 10:07 | NURSING ---
R' C/O NAUSEA AFTER TAKING NORCO. ZOFRAN GIVEN AT THIS TIME. WILL MONITOR
--- NOTE | 2017-10-01 13:31 | CASEMGMT ---
Insurance Clinical information faxed. Pending continued stay approval at this time. Auth#[id number] Christal TERRAZAS, ENTERTAINMENT PRODUCTION PROFESSIONAL
[2017-10-01 16:11] VITALS: BP 155/89; PULSE 85; RESP 16; TEMP 36.5; O2SAT 95
--- NOTE | 2017-10-01 16:25 | NURSING ---
UPDATED DR. TURNER OF R' INCREASING BP READINGS. ORDER TO START ON LOSARTAN 100MG/DAY, FIRST DOSE NOW. WILL UPDATE R'.
[2017-10-01] MEDS: Losartan Potassium 100 MG Tablet PO (17:18)
[2017-10-01] MEDS: Acetaminophen 500 MG Tablet 1000 MG PO (17:21)
[2017-10-01] MEDS: traZODone 50 MG Tablet PO (21:56)
[2017-10-01] MEDS: Gabapentin 300 MG Capsule PO (21:56)
[2017-10-01] MEDS: MELATONIN 3 MG TABLET PO (21:56)
[2017-10-01] MEDS: Atorvastatin Calcium 40 MG Tablet PO (21:56)
[2017-10-01 22:00] VITALS: RESP 15
[2017-10-02] MEDS: APIXABAN 5 MG TABLET PO ×2 (06:17→17:22)
[2017-10-02] MEDS: HYDROcodone Bitartrate/Apap 5/325 Tablet PO ×4 (06:18→21:39)
[2017-10-02] MEDS: Losartan Potassium 100 MG Tablet PO (06:18)
[2017-10-02] MEDS: Famotidine 20 MG Tablet PO ×2 (06:18→17:22)
[2017-10-02] MEDS: Menthol/Lanolin/Calamine/Znox 113 GM Tube 1 APPLIC TOPICAL ×3 (06:19→21:46)
[2017-10-02] MEDS: Lidocaine 5% Patch 1 PATCH TOPICAL (06:19)
[2017-10-02] MEDS: Polyethylene Glycol 3350 17 GM PACKET PO (06:19)
[2017-10-02] MEDS: Nystatin Powder 15gm Bottle 1 APPLIC TOPICAL ×2 (06:20→21:47)
[2017-10-02] MEDS: Ondansetron ODT 4 MG Tablet PO ×2 (13:09→21:40)
[2017-10-02 16:00] VITALS: BP 116/66; PULSE 77; RESP 20; TEMP 37.1; O2SAT 94
[2017-10-02] MEDS: traZODone 50 MG Tablet PO (21:39)
[2017-10-02] MEDS: Gabapentin 300 MG Capsule PO (21:39)
[2017-10-02] MEDS: MELATONIN 3 MG TABLET PO (21:39)
[2017-10-02] MEDS: Atorvastatin Calcium 40 MG Tablet PO (21:39)
[2017-10-03] MEDS: Losartan Potassium 100 MG Tablet PO (06:34)
[2017-10-03] MEDS: Famotidine 20 MG Tablet PO ×2 (06:34→18:35)
[2017-10-03] MEDS: Ondansetron ODT 4 MG Tablet PO ×2 (06:34→21:58)
[2017-10-03] MEDS: HYDROcodone Bitartrate/Apap 5/325 Tablet PO ×2 (06:34→21:58)
[2017-10-03] MEDS: APIXABAN 5 MG TABLET PO ×2 (06:34→18:35)
[2017-10-03] MEDS: Lidocaine 5% Patch 1 PATCH TOPICAL (06:35)
[2017-10-03] MEDS: Polyethylene Glycol 3350 17 GM PACKET PO (06:35)
[2017-10-03] MEDS: Menthol/Lanolin/Calamine/Znox 113 GM Tube 1 APPLIC TOPICAL ×3 (06:56→22:03)
[2017-10-03] MEDS: Nystatin Powder 15gm Bottle 1 APPLIC TOPICAL ×2 (06:56→22:07)
[2017-10-03] MEDS: Acetaminophen 500 MG Tablet 1000 MG PO (08:53)
[2017-10-03 16:00] VITALS: BP 104/64; PULSE 84; RESP 20; TEMP 37.1; O2SAT 93
[2017-10-03] MEDS: Gabapentin 300 MG Capsule PO (21:58)
[2017-10-03] MEDS: MELATONIN 3 MG TABLET PO (21:58)
[2017-10-03] MEDS: Atorvastatin Calcium 40 MG Tablet PO (21:58)
[2017-10-03] MEDS: traZODone 50 MG Tablet PO (21:58)
[2017-10-04] MEDS: HYDROcodone Bitartrate/Apap 5/325 Tablet PO ×3 (06:16→17:24)
[2017-10-04] MEDS: Polyethylene Glycol 3350 17 GM PACKET PO (06:16)
[2017-10-04] MEDS: Famotidine 20 MG Tablet PO ×2 (06:16→17:26)
[2017-10-04] MEDS: APIXABAN 5 MG TABLET PO ×2 (06:16→17:26)
[2017-10-04] MEDS: Lidocaine 5% Patch 1 PATCH TOPICAL (06:16)
[2017-10-04] MEDS: Ondansetron ODT 4 MG Tablet PO ×3 (06:16→17:25)
[2017-10-04] MEDS: Losartan Potassium 100 MG Tablet PO (06:16)
[2017-10-04] MEDS: Nystatin Powder 15gm Bottle 1 APPLIC TOPICAL ×2 (06:26→21:11)
[2017-10-04] MEDS: Menthol/Lanolin/Calamine/Znox 113 GM Tube 1 APPLIC TOPICAL ×3 (06:26→21:18)
[2017-10-04 16:00] VITALS: BP 124/73; PULSE 82; RESP 18; TEMP 36.8; O2SAT 96
--- NOTE | 2017-10-04 16:17 | CHAPLAIN ---
Type of Pastoral Visit ___ Initial Visit _x__ Follow-up Visit ___ On-call Visit ___ General Patient Visit ___ Spiritual Assessment ___ Family Conference ___ Bereavement ___ Rapid Response ___ Code Blue ___ Other (describe below) Pastoral Care Referral From _x__ Patient ___ Family ___ Nurse ___ Physician ___ Mine Technician ___ Automatic Lathe Setter ___ Other (describe below) Sacrament/Intervention _x__ Active listening ___ Anointing ___ Voodoo ___ Bereavement ___ Communion ___ Nessa exploration ___ ___ Life review ___ Prayer ___ Reconciliation ___ Sacrament of Sick ___ Supportive presence ___ Wedding ___ Other (describe below) Pastoral Comments brief visit to say cortney; patient would appear to be more optimistic today and spoke about seeing bits of progress
[2017-10-04] MEDS: traZODone 50 MG Tablet PO (21:07)
[2017-10-04] MEDS: Atorvastatin Calcium 40 MG Tablet PO (21:07)
[2017-10-04] MEDS: Gabapentin 300 MG Capsule PO (21:07)
[2017-10-04] MEDS: MELATONIN 3 MG TABLET PO (21:11)
[2017-10-05] MEDS: Famotidine 20 MG Tablet PO ×2 (06:17→16:33)
[2017-10-05] MEDS: HYDROcodone Bitartrate/Apap 5/325 Tablet PO ×3 (06:17→17:30)
[2017-10-05] MEDS: APIXABAN 5 MG TABLET PO ×2 (06:17→16:33)
[2017-10-05] MEDS: Lidocaine 5% Patch 1 PATCH TOPICAL (06:17)
[2017-10-05] MEDS: Losartan Potassium 100 MG Tablet PO (06:17)
[2017-10-05] MEDS: Nystatin Powder 15gm Bottle 1 APPLIC TOPICAL ×2 (06:22→21:18)
[2017-10-05] MEDS: Menthol/Lanolin/Calamine/Znox 113 GM Tube 1 APPLIC TOPICAL ×3 (06:22→21:17)
[2017-10-05] MEDS: Polyethylene Glycol 3350 17 GM PACKET PO (06:22)
[2017-10-05] MEDS: Acetaminophen 500 MG Tablet 1000 MG PO (09:51)
--- NOTE | 2017-10-05 11:31 | MDS.RN ---
Information for the mds was obtained from review of the clinical record, interview of resident, staff, and direct observation of resident's care.
--- NOTE | 2017-10-05 12:25 | NURSING ---
[facility] called and explained that insurance does not cover transportation to appt tomorrow. , Marlena aware & pt aware, family paying up front per [facility] request d/t non-coverage by insurance.
--- NOTE | 2017-10-05 14:55 | NURSING ---
Pt had late shower with occupational therapy, lt hip lidoderm patch loosened, removed d/t not sticking after wet.
[2017-10-05 15:41] VITALS: BP 144/84; PULSE 80; RESP 16; TEMP 36.6; O2SAT 100
--- NOTE | 2017-10-05 16:09 | CASEMGMT ---
Insurance Continued stay approved with next update due on 10/08/17. Silvia at [facility] also communicating that resident skilled benefit is 50 days. Auth#[id number] Christal TERRAZAS, BEAMER HELPER
[2017-10-05] MEDS: MELATONIN 3 MG TABLET PO (21:13)
[2017-10-05] MEDS: Gabapentin 300 MG Capsule PO (21:13)
[2017-10-05] MEDS: traZODone 50 MG Tablet PO (21:13)
[2017-10-05] MEDS: Atorvastatin Calcium 40 MG Tablet PO (21:13)
[2017-10-06] MEDS: Famotidine 20 MG Tablet PO ×2 (05:20→16:27)
[2017-10-06] MEDS: Polyethylene Glycol 3350 17 GM PACKET PO (05:20)
[2017-10-06] MEDS: Losartan Potassium 100 MG Tablet PO (05:20)
[2017-10-06] MEDS: Lidocaine 5% Patch 1 PATCH TOPICAL (05:20)
[2017-10-06] MEDS: APIXABAN 5 MG TABLET PO ×2 (05:20→16:27)
[2017-10-06] MEDS: Nystatin Powder 15gm Bottle 1 APPLIC TOPICAL ×2 (05:28→22:43)
[2017-10-06] MEDS: Menthol/Lanolin/Calamine/Znox 113 GM Tube 1 APPLIC TOPICAL ×3 (05:28→22:42)
[2017-10-06] MEDS: HYDROcodone Bitartrate/Apap 5/325 Tablet PO ×3 (06:54→22:40)
--- NOTE | 2017-10-06 07:41 | NURSING ---
here and riding along with pt in [facility] vehicle via
[2017-10-06] MEDS: Ondansetron ODT 4 MG Tablet PO (14:07)
--- NOTE | 2017-10-06 14:27 | NURSING ---
returned from [facility] in [place], no new orders per .
[2017-10-06 16:00] VITALS: BP 136/79; PULSE 89; RESP 18; TEMP 37.3; O2SAT 93
--- NOTE | 2017-10-06 16:46 | CASEMGMT ---
Brief interview for mental status (BIMS) and resident mood interview (PHQ-9) completed on this day. BIMS score 15/15. PHQ-9 score 02/16
[2017-10-06] MEDS: MELATONIN 3 MG TABLET PO (22:39)
[2017-10-06] MEDS: Atorvastatin Calcium 40 MG Tablet PO (22:39)
[2017-10-06] MEDS: traZODone 50 MG Tablet PO (22:39)
[2017-10-06] MEDS: Gabapentin 300 MG Capsule PO (22:39)
[2017-10-06 23:00] VITALS: RESP 15
[2017-10-07 06:03] LABS: Absolute Neutrophil Count 3.1 X10^3/uL (2.0-7.7); Basophil# 0.02 X10^3/uL; Basophil% 0.4 % (0-1); Eosinophil# 0.14 X10^3/uL; Eosinophils% 2.5 % (0-5); Hematocrit 40.1 % (40-54); Hemoglobin 13.3 g/dl (13.0-16.5); Lymphocyte % 26.5 % (19-41); Mean Corp Hgb Conc 33.2 g/gl (32-36); Mean Corpuscular Hgb 30.8 pg (27.0-32.0); Mean Corpuscular Volume 92.8 fL (80-94); Mean Platelet Vol. 10.2 fl (6.2-12.0); Monocyte# 0.86 X10^3/uL; Monocyte% 15.2 % (0-10); Neutrophil # 3.11 X10^3/uL (2.7-7.7); Neutrophil % 54.9 % (47-70); Platelet Count 260 K/mm3 (150-450); RBC Distribution Width CV 13.2 % (11.6-14.6); RBC Distribution Width SD 43.6 fl (35.1-43.9); Red Blood Count 4.32 M/mm3 (4.6-6.2); White Blood Count 5.7 K/mm3 (4.4-11.0)
[2017-10-07 06:08] LABS: POSITIVE COUNT NO; POSITIVE DIFFERENTIAL NO; POSITIVE MORPHOLOGY NO
[2017-10-07 06:40] LABS: Anion Gap 7 (5-15); BUN 11 mg/dL (7-18); BUN/Creat Ratio 12.4 RATIO (10-20); Calcium,Total 9.9 mg/dL (8.5-10.1); Chloride 101 mmol/L (98-107); Creatinine, Serum 0.88 mg/dL (0.70-1.30); EST Glomerular Filtration Rate 92 mL/min (>60); Est Glom Filt Rate - Afr Amer 111 mL/min (>60); Estimated Creatinine Clearance 95.24 ml/min; Glucose 110 mg/dL (74-106); Potassium 3.8 mmol/L (3.5-5.1); Sodium Level 138 mmol/L (136-145)
[2017-10-07] MEDS: APIXABAN 5 MG TABLET PO ×2 (06:40→16:59)
[2017-10-07] MEDS: Famotidine 20 MG Tablet PO ×2 (06:40→16:59)
[2017-10-07] MEDS: Losartan Potassium 100 MG Tablet PO (06:40)
[2017-10-07] MEDS: Menthol/Lanolin/Calamine/Znox 113 GM Tube 1 APPLIC TOPICAL ×3 (06:40→22:07)
[2017-10-07] MEDS: Polyethylene Glycol 3350 17 GM PACKET PO (06:40)
[2017-10-07] MEDS: Lidocaine 5% Patch 1 PATCH TOPICAL (06:40)
[2017-10-07] MEDS: Nystatin Powder 15gm Bottle 1 APPLIC TOPICAL ×2 (06:41→22:14)
[2017-10-07 10:00] VITALS: PULSE 80; RESP 16
[2017-10-07] MEDS: HYDROcodone Bitartrate/Apap 5/325 Tablet PO ×2 (10:39→17:02)
[2017-10-07] MEDS: Acetaminophen 500 MG Tablet 1000 MG PO (12:36)
[2017-10-07 16:00] VITALS: BP 128/70; PULSE 76; RESP 18; TEMP 37; O2SAT 93
[2017-10-07] MEDS: Gabapentin 300 MG Capsule PO (18:06)
[2017-10-07] MEDS: Atorvastatin Calcium 40 MG Tablet PO (22:03)
[2017-10-07] MEDS: traZODone 50 MG Tablet PO (22:03)
[2017-10-07] MEDS: MELATONIN 3 MG TABLET PO (22:04)
[2017-10-08] MEDS: Lidocaine 5% Patch 1 PATCH TOPICAL (04:48)
[2017-10-08] MEDS: Famotidine 20 MG Tablet PO ×2 (04:48→17:11)
[2017-10-08] MEDS: Menthol/Lanolin/Calamine/Znox 113 GM Tube 1 APPLIC TOPICAL ×3 (04:48→21:54)
[2017-10-08] MEDS: Polyethylene Glycol 3350 17 GM PACKET PO (04:48)
[2017-10-08] MEDS: Losartan Potassium 100 MG Tablet PO (04:48)
[2017-10-08] MEDS: APIXABAN 5 MG TABLET PO ×2 (04:48→17:11)
[2017-10-08] MEDS: Nystatin Powder 15gm Bottle 1 APPLIC TOPICAL ×2 (04:49→21:54)
[2017-10-08] MEDS: Acetaminophen 500 MG Tablet 1000 MG PO ×2 (04:56→11:42)
[2017-10-08] MEDS: Gabapentin 300 MG Capsule PO ×3 (08:35→17:11)
[2017-10-08 10:00] VITALS: PULSE 78; RESP 16; O2SAT 96
--- NOTE | 2017-10-08 10:45 | CASEMGMT ---
Insurance Clinical information faxed. Pending continued stay approval at this time. Auth#[id number] Christal TERRAZAS, AUTOMATIC EMBROIDERY MACHINE TENDER
--- NOTE | 2017-10-08 12:07 | CASEMGMT ---
Insurance Continued stay approved with next update due on 10/15/17. Auth#[id number] Christal TERRAZAS, SPECIAL EVENTS COORDINATOR
--- NOTE | 2017-10-08 12:19 | CASEMGMT ---
Social Work Collaborating with resident and resident spouse on discharge planning. Resident and resident spouse aware insurance has approved more time. This social media content specialist broaching topic of discharge plan in the event that insurance does not approve more time with the next update. Resident spouse hesitant to discuss residential placement, but open to the discussion. Resident spouse reporting to have the primary goal to patient returning home with spouse at time of discharge. Resident spouse aware that resident currently requires 2 people to help him at this time and that there has been limited progress. Resident spouse discouraged with current situation. This social media content specialist offering emotional support. Support given. Will continue to follow. Christal TERRAZAS, APPLICATIONS SYSTEMS ENGINEER
[2017-10-08] MEDS: HYDROcodone Bitartrate/Apap 5/325 Tablet PO ×2 (12:47→17:11)
[2017-10-08 16:00] VITALS: BP 126/78; PULSE 80; RESP 18; TEMP 36.6; O2SAT 94
[2017-10-08] MEDS: traZODone 50 MG Tablet PO (21:49)
[2017-10-08] MEDS: MELATONIN 3 MG TABLET PO (21:49)
[2017-10-08] MEDS: Atorvastatin Calcium 40 MG Tablet PO (21:49)
[2017-10-09] MEDS: APIXABAN 5 MG TABLET PO ×2 (05:07→17:15)
[2017-10-09] MEDS: Polyethylene Glycol 3350 17 GM PACKET PO (05:07)
[2017-10-09] MEDS: HYDROcodone Bitartrate/Apap 5/325 Tablet PO (05:07)
[2017-10-09] MEDS: Losartan Potassium 100 MG Tablet PO (05:07)
[2017-10-09] MEDS: Famotidine 20 MG Tablet PO ×2 (05:07→17:15)
[2017-10-09] MEDS: Lidocaine 5% Patch 1 PATCH TOPICAL (05:08)
[2017-10-09] MEDS: Ondansetron ODT 4 MG Tablet PO (05:08)
[2017-10-09] MEDS: Menthol/Lanolin/Calamine/Znox 113 GM Tube 1 APPLIC TOPICAL ×3 (05:19→20:52)
[2017-10-09] MEDS: Nystatin Powder 15gm Bottle 1 APPLIC TOPICAL ×2 (05:19→20:52)
[2017-10-09] MEDS: Gabapentin 300 MG Capsule PO ×3 (08:11→17:15)
--- NOTE | 2017-10-09 10:41 | NURSING ---
dr Fernández notified of pt maxing his tylenol w/norco. New order for oxyir 10mg Q4 prn severe pain. DC tri
[2017-10-09] MEDS: oxyCODONE 5 MG Tablet 10 MG PO ×2 (11:39→21:02)
[2017-10-09 16:00] VITALS: BP 117/69; PULSE 74; RESP 20; TEMP 36.9; O2SAT 98
[2017-10-09] MEDS: traZODone 50 MG Tablet PO (20:51)
[2017-10-09] MEDS: MELATONIN 3 MG TABLET PO (20:51)
[2017-10-09] MEDS: Atorvastatin Calcium 40 MG Tablet PO (20:51)
[2017-10-10] MEDS: Famotidine 20 MG Tablet PO ×2 (05:09→17:48)
[2017-10-10] MEDS: APIXABAN 5 MG TABLET PO ×2 (05:09→17:46)
[2017-10-10] MEDS: Menthol/Lanolin/Calamine/Znox 113 GM Tube 1 APPLIC TOPICAL ×3 (05:09→21:55)
[2017-10-10] MEDS: Losartan Potassium 100 MG Tablet PO (05:09)
[2017-10-10] MEDS: Polyethylene Glycol 3350 17 GM PACKET PO (05:10)
[2017-10-10] MEDS: Lidocaine 5% Patch 1 PATCH TOPICAL (05:10)
[2017-10-10] MEDS: Nystatin Powder 15gm Bottle 1 APPLIC TOPICAL ×2 (05:10→21:55)
[2017-10-10] MEDS: Acetaminophen 500 MG Tablet 1000 MG PO (05:29)
[2017-10-10] MEDS: Gabapentin 300 MG Capsule PO ×3 (08:58→17:46)
--- NOTE | 2017-10-10 09:14 | NURSING ---
Pt asked if he has therapy today, explained no therapy on Sundays. This nurse requested that pt get up and sit in chair today. Pt declined, how about at lunch. Explained that it would be good for him to be up in chair and not laying in bed all day. Pt agreed, but does not want gotten up to chair until lunch.
[2017-10-10 15:53] VITALS: BP 152/74; PULSE 80; RESP 18; TEMP 36.6; O2SAT 96
[2017-10-10] MEDS: traZODone 50 MG Tablet PO (21:52)
[2017-10-10] MEDS: Atorvastatin Calcium 40 MG Tablet PO (21:52)
[2017-10-10] MEDS: oxyCODONE 5 MG Tablet 10 MG PO (21:55)
[2017-10-10] MEDS: MELATONIN 3 MG TABLET PO (21:55)
[2017-10-10] MEDS: Ondansetron ODT 4 MG Tablet PO (22:01)
[2017-10-11] MEDS: Polyethylene Glycol 3350 17 GM PACKET PO (05:32)
[2017-10-11] MEDS: Famotidine 20 MG Tablet PO ×2 (05:35→17:00)
[2017-10-11] MEDS: APIXABAN 5 MG TABLET PO ×2 (05:35→17:00)
[2017-10-11] MEDS: Menthol/Lanolin/Calamine/Znox 113 GM Tube 1 APPLIC TOPICAL ×3 (05:35→22:36)
[2017-10-11] MEDS: Nystatin Powder 15gm Bottle 1 APPLIC TOPICAL ×2 (05:35→22:36)
[2017-10-11] MEDS: Losartan Potassium 100 MG Tablet PO (05:35)
[2017-10-11] MEDS: oxyCODONE 5 MG Tablet 10 MG PO ×4 (05:35→22:38)
[2017-10-11] MEDS: Lidocaine 5% Patch 1 PATCH TOPICAL (06:56)
[2017-10-11] MEDS: Gabapentin 300 MG Capsule PO ×3 (08:09→17:00)
[2017-10-11 15:50] VITALS: BP 106/76; PULSE 80; RESP 18; TEMP 36.8; O2SAT 96
[2017-10-11] MEDS: Acetaminophen 500 MG Tablet 1000 MG PO (16:59)
[2017-10-11] MEDS: Atorvastatin Calcium 40 MG Tablet PO (22:36)
[2017-10-11] MEDS: MELATONIN 3 MG TABLET PO (22:36)
[2017-10-11] MEDS: traZODone 50 MG Tablet PO (22:36)
[2017-10-12] MEDS: Polyethylene Glycol 3350 17 GM PACKET PO (06:10)
[2017-10-12] MEDS: Famotidine 20 MG Tablet PO ×2 (06:13→16:55)
[2017-10-12] MEDS: Losartan Potassium 100 MG Tablet PO (06:13)
[2017-10-12] MEDS: Menthol/Lanolin/Calamine/Znox 113 GM Tube 1 APPLIC TOPICAL ×3 (06:13→20:58)
[2017-10-12] MEDS: oxyCODONE 5 MG Tablet 10 MG PO ×3 (06:13→20:58)
[2017-10-12] MEDS: APIXABAN 5 MG TABLET PO ×2 (06:13→16:55)
[2017-10-12] MEDS: Lidocaine 5% Patch 1 PATCH TOPICAL (06:17)
[2017-10-12] MEDS: Nystatin Powder 15gm Bottle 1 APPLIC TOPICAL ×2 (06:17→20:59)
[2017-10-12] MEDS: Gabapentin 300 MG Capsule PO ×3 (07:45→16:55)
[2017-10-12 15:30] VITALS: BP 121/74; PULSE 93; RESP 16; TEMP 36.8; O2SAT 94
[2017-10-12] MEDS: MELATONIN 3 MG TABLET PO (20:58)
[2017-10-12] MEDS: Atorvastatin Calcium 40 MG Tablet PO (20:58)
[2017-10-12] MEDS: traZODone 50 MG Tablet PO (20:58)
[2017-10-13] MEDS: Polyethylene Glycol 3350 17 GM PACKET PO (04:40)
[2017-10-13] MEDS: oxyCODONE 5 MG Tablet 10 MG PO ×3 (04:43→21:18)
[2017-10-13] MEDS: APIXABAN 5 MG TABLET PO ×2 (04:43→17:09)
[2017-10-13] MEDS: Losartan Potassium 100 MG Tablet PO (04:44)
[2017-10-13] MEDS: Menthol/Lanolin/Calamine/Znox 113 GM Tube 1 APPLIC TOPICAL ×3 (04:44→21:25)
[2017-10-13] MEDS: Famotidine 20 MG Tablet PO ×2 (04:44→17:09)
[2017-10-13] MEDS: Nystatin Powder 15gm Bottle 1 APPLIC TOPICAL ×2 (04:44→21:25)
[2017-10-13] MEDS: Lidocaine 5% Patch 1 PATCH TOPICAL (04:45)
[2017-10-13] MEDS: Gabapentin 300 MG Capsule PO ×3 (07:50→17:10)
[2017-10-13 15:59] VITALS: BP 116/64; PULSE 68; RESP 18; TEMP 36.4; O2SAT 96
[2017-10-13] MEDS: Ondansetron ODT 4 MG Tablet PO (21:18)
[2017-10-13] MEDS: Atorvastatin Calcium 40 MG Tablet PO (21:18)
[2017-10-13] MEDS: traZODone 50 MG Tablet PO (21:18)
[2017-10-13] MEDS: MELATONIN 3 MG TABLET PO (21:19)
[2017-10-14] MEDS: Lidocaine 5% Patch 1 PATCH TOPICAL (06:04)
[2017-10-14] MEDS: Polyethylene Glycol 3350 17 GM PACKET PO (06:04)
[2017-10-14] MEDS: Ondansetron ODT 4 MG Tablet PO ×2 (06:05→21:48)
[2017-10-14] MEDS: APIXABAN 5 MG TABLET PO ×2 (06:05→17:59)
[2017-10-14] MEDS: Losartan Potassium 100 MG Tablet PO (06:05)
[2017-10-14] MEDS: oxyCODONE 5 MG Tablet 10 MG PO ×3 (06:05→21:48)
[2017-10-14] MEDS: Famotidine 20 MG Tablet PO ×2 (06:05→17:59)
[2017-10-14] MEDS: Nystatin Powder 15gm Bottle 1 APPLIC TOPICAL ×2 (06:13→21:55)
[2017-10-14] MEDS: Menthol/Lanolin/Calamine/Znox 113 GM Tube 1 APPLIC TOPICAL ×3 (06:13→21:55)
[2017-10-14 06:21] LABS: Absolute Lymphocyte Count 1.16 X10^3/ul (0.83-4.51); Absolute Neutrophil Count 2.4 X10^3/uL (2.0-7.7); Basophil# 0.03 X10^3/uL; Basophil% 0.7 % (0-1); Eosinophils% 2.3 % (0-5); Hematocrit 39.6 % (40-54); Hemoglobin 13.1 g/dl (13.0-16.5); Lymphocyte # 1.16 X10^3/ul (4.0); Lymphocyte % 26.5 % (19-41); Mean Corp Hgb Conc 33.1 g/gl (32-36); Mean Corpuscular Hgb 30.5 pg (27.0-32.0); Mean Corpuscular Volume 92.3 fL (80-94); Monocyte# 0.67 X10^3/uL; Monocyte% 15.3 % (0-10); Neutrophil # 2.39 X10^3/uL (2.7-7.7); Neutrophil % 54.7 % (47-70); Platelet Count 197 K/mm3 (150-450); RBC Distribution Width CV 12.8 % (11.6-14.6); RBC Distribution Width SD 42.2 fl (35.1-43.9); Red Blood Count 4.29 M/mm3 (4.6-6.2); White Blood Count 4.4 K/mm3 (4.4-11.0)
[2017-10-14 06:23] LABS: Anion Gap 6 (5-15); BUN 11 mg/dL (7-18); BUN/Creat Ratio 14.3 RATIO (10-20); Calcium,Total 9.8 mg/dL (8.5-10.1); Chloride 102 mmol/L (98-107); Creatinine, Serum 0.77 mg/dL (0.70-1.30); EST Glomerular Filtration Rate 108 mL/min (>60); Est Glom Filt Rate - Afr Amer 130 mL/min (>60); Estimated Creatinine Clearance 107.73 ml/min; Glucose 95 mg/dL (74-106); Potassium 3.7 mmol/L (3.5-5.1); Sodium Level 141 mmol/L (136-145)
[2017-10-14 06:29] LABS: POSITIVE COUNT NO; POSITIVE DIFFERENTIAL NO; POSITIVE MORPHOLOGY NO
[2017-10-14] MEDS: Gabapentin 300 MG Capsule PO ×3 (07:32→17:59)
--- NOTE | 2017-10-14 09:40 | CASEMGMT ---
Social Work Collaborating with resident and resident spouse, Marlena on discharge plan in the event that continued stay is not approved through insurance. Resident does have an update due on 10/14/17. Marlena reporting that the plan would be for resident to discharge home with Marlena but that Marlena would like to see resident be able to stay on the skilled unit until the next surgery. Marlena reporting to not have a surgery date yet but to notify this social media content manager once the date is received. Marlena asking this social media content manager about appeal process if continued stay was denied by insurance. This socia worker educating Marlena on appeal process. Marlena planning to purchase a sliding board and set up a ramp to enter the home. Marlena planning to stop by [facility] on 10/14/17. This social to set up the hospital bed and wheelchair at time of discharge date being set. Marlena aware of level of assist that resident currently requires and the risk of returning home. Therapy wanting to continue to work with resident at this time and no discharge date has been set by the facility. Speech therapy reporting that resident is showing some improvement in attention and left neglect. Support given. Will continue to follow. Christal TERRAZAS, DIRECT SUPPORT PROFESSIONAL HOME HEALTH
--- NOTE | 2017-10-14 09:47 | CASEMGMT ---
Insurance Clinical information faxed. Pending continued stay approval at this time. Auth#[id number] Christal TERRAZAS, BI MANAGER
[2017-10-14] MEDS: Acetaminophen 500 MG Tablet 1000 MG PO (13:26)
[2017-10-14 15:37] VITALS: BP 132/47; PULSE 78; RESP 18; TEMP 36.6; O2SAT 95
[2017-10-14] MEDS: Atorvastatin Calcium 40 MG Tablet PO (21:48)
[2017-10-14] MEDS: traZODone 50 MG Tablet PO (21:48)
[2017-10-14] MEDS: MELATONIN 3 MG TABLET PO (21:48)
[2017-10-15] MEDS: Famotidine 20 MG Tablet PO ×2 (05:41→17:39)
[2017-10-15] MEDS: Polyethylene Glycol 3350 17 GM PACKET PO (05:41)
[2017-10-15] MEDS: Losartan Potassium 100 MG Tablet PO (05:42)
[2017-10-15] MEDS: APIXABAN 5 MG TABLET PO ×2 (05:42→17:55)
[2017-10-15] MEDS: Lidocaine 5% Patch 1 PATCH TOPICAL (05:42)
[2017-10-15] MEDS: oxyCODONE 5 MG Tablet 10 MG PO ×3 (05:42→21:54)
[2017-10-15] MEDS: Ondansetron ODT 4 MG Tablet PO (05:42)
[2017-10-15] MEDS: Nystatin Powder 15gm Bottle 1 APPLIC TOPICAL ×2 (05:51→21:57)
[2017-10-15] MEDS: Menthol/Lanolin/Calamine/Znox 113 GM Tube 1 APPLIC TOPICAL ×3 (05:51→21:57)
[2017-10-15] MEDS: Gabapentin 300 MG Capsule PO ×3 (08:47→17:39)
--- NOTE | 2017-10-15 12:54 | CASEMGMT ---
Social Work Collaborating with team on possible community resources for resident. [facility] is being recommended at this time. Spoke with resident and resident spouse, Marlena. This executive secretary social welfare educating Marlena and resident on [facility] from the outpatient therapy perspective. Marlena and resident interested in gaining further information and this executive secretary social welfare making a referral. Telephone call to Doug Parada. This executive secretary social welfare making referral. Doug to be in contact this with executive secretary social welfare. Clinical information faxed. Will continue to follow. Christal TERRAZAS, GARMENT SUPERVISOR
--- NOTE | 2017-10-15 12:56 | CASEMGMT ---
Insurance Continued stay has been approved with next update due on 10/20/17. Auth#[id number] Christal TERRAZAS, CUP SETTER LOCKSTITCH
[2017-10-15 16:00] VITALS: BP 137/76; PULSE 90; RESP 18; TEMP 36.6; O2SAT 93
[2017-10-15] MEDS: traZODone 50 MG Tablet PO (21:53)
[2017-10-15] MEDS: Atorvastatin Calcium 40 MG Tablet PO (21:53)
[2017-10-15] MEDS: MELATONIN 3 MG TABLET PO (21:54)
[2017-10-15 22:00] VITALS: O2SAT 99
[2017-10-16] MEDS: Polyethylene Glycol 3350 17 GM PACKET PO (06:11)
[2017-10-16] MEDS: oxyCODONE 5 MG Tablet 10 MG PO ×2 (06:15→11:56)
[2017-10-16] MEDS: Famotidine 20 MG Tablet PO ×2 (06:15→17:47)
[2017-10-16] MEDS: Lidocaine 5% Patch 1 PATCH TOPICAL (06:15)
[2017-10-16] MEDS: Losartan Potassium 100 MG Tablet PO (06:16)
[2017-10-16] MEDS: APIXABAN 5 MG TABLET PO ×2 (06:16→17:47)
[2017-10-16] MEDS: Menthol/Lanolin/Calamine/Znox 113 GM Tube 1 APPLIC TOPICAL ×3 (06:22→21:49)
[2017-10-16] MEDS: Nystatin Powder 15gm Bottle 1 APPLIC TOPICAL ×2 (06:22→21:49)
[2017-10-16] MEDS: Ondansetron ODT 4 MG Tablet PO (06:24)
[2017-10-16] MEDS: Gabapentin 300 MG Capsule PO ×3 (08:16→17:47)
[2017-10-16 15:49] VITALS: BP 162/58; PULSE 82; RESP 20; TEMP 36.4; O2SAT 94
[2017-10-16 20:29] VITALS: O2SAT 98
[2017-10-16] MEDS: Atorvastatin Calcium 40 MG Tablet PO (21:49)
[2017-10-16] MEDS: MELATONIN 3 MG TABLET PO (21:49)
[2017-10-16] MEDS: traZODone 50 MG Tablet PO (21:49)
[2017-10-17] MEDS: oxyCODONE 5 MG Tablet 10 MG PO ×3 (02:12→21:32)
[2017-10-17] MEDS: Losartan Potassium 100 MG Tablet PO (06:05)
[2017-10-17] MEDS: Lidocaine 5% Patch 1 PATCH TOPICAL (06:05)
[2017-10-17] MEDS: Menthol/Lanolin/Calamine/Znox 113 GM Tube 1 APPLIC TOPICAL ×3 (06:05→21:33)
[2017-10-17] MEDS: APIXABAN 5 MG TABLET PO ×2 (06:05→17:08)
[2017-10-17] MEDS: Nystatin Powder 15gm Bottle 1 APPLIC TOPICAL ×2 (06:06→21:33)
[2017-10-17] MEDS: Famotidine 20 MG Tablet PO ×2 (06:06→17:08)
[2017-10-17] MEDS: Polyethylene Glycol 3350 17 GM PACKET PO (06:06)
[2017-10-17] MEDS: Acetaminophen 500 MG Tablet 1000 MG PO (06:09)
[2017-10-17] MEDS: Gabapentin 300 MG Capsule PO ×3 (08:05→17:08)
[2017-10-17 16:00] VITALS: BP 135/76; PULSE 84; RESP 16; TEMP 36.8; O2SAT 93
[2017-10-17] MEDS: Ondansetron ODT 4 MG Tablet PO (17:19)
[2017-10-17] MEDS: MELATONIN 3 MG TABLET PO (21:32)
[2017-10-17] MEDS: traZODone 50 MG Tablet PO (21:32)
[2017-10-17] MEDS: Atorvastatin Calcium 40 MG Tablet PO (21:32)
[2017-10-18] MEDS: Lidocaine 5% Patch 1 PATCH TOPICAL (05:37)
[2017-10-18] MEDS: APIXABAN 5 MG TABLET PO ×2 (05:38→17:11)
[2017-10-18] MEDS: Famotidine 20 MG Tablet PO ×2 (05:38→17:11)
[2017-10-18] MEDS: Polyethylene Glycol 3350 17 GM PACKET PO (05:38)
[2017-10-18] MEDS: Nystatin Powder 15gm Bottle 1 APPLIC TOPICAL ×2 (05:38→21:43)
[2017-10-18] MEDS: Menthol/Lanolin/Calamine/Znox 113 GM Tube 1 APPLIC TOPICAL ×3 (05:38→21:44)
[2017-10-18] MEDS: Losartan Potassium 100 MG Tablet PO (05:38)
[2017-10-18] MEDS: oxyCODONE 5 MG Tablet 10 MG PO ×2 (05:44→21:44)
[2017-10-18] MEDS: Gabapentin 300 MG Capsule PO ×3 (07:18→17:11)
[2017-10-18] MEDS: Acetaminophen 500 MG Tablet 1000 MG PO (09:30)
[2017-10-18] MEDS: Ondansetron ODT 4 MG Tablet PO (09:33)
[2017-10-18 16:00] VITALS: BP 128/83; PULSE 105; RESP 18; TEMP 36.8; O2SAT 95
--- NOTE | 2017-10-18 18:53 | PCM.TCUNOT ---
Subjective: Resident seen in room, sitting in chair. He had hard BM today, will increase stool softeners. His only complaint is of the left shoulder, left hip pain which has been difficult to control, but the pain is tolerable. His mood is okay. Vitals/I&O's: Vital Signs Temp Pulse Resp BP Pulse Ox 98.3 F 105 H 18 128/83 H 95 10/18/17 16:00 10/18/17 16:00 10/18/17 16:00 10/18/17 16:00 10/18/17 16:00 Oxygen Delivery Method Room Air Weight: 78.585 kg Body Mass Index (BMI) 23.1 Intake and Output for Last 24 Hours 10/16/17 10/17/17 10/18/17 23:59 23:59 23:59 Intake Total 600 / 600 540 / 540 480 / 480 Output Total 425 / 425 Balance 175 / 175 540 / 540 480 / 480 Past Medical History Past Medical History (Chronic Problems): Chronic Problems Chronic pain (Chronic) Hyperlipidemia (Chronic) Headache (Chronic) Atrial fibrillation with RVR (Chronic) Atrial fibrillation (Chronic) Hypertension (Chronic) Neuropathic pain (Chronic) Major depression (Chronic) Allergies No Known Allergies Allergy (Verified 09/22/17 18:57) Home Medications: Ambulatory Orders Medication Instructions Recorded Acetaminophen 650 mg PO Q6H PRN 09/22/17 Apixaban [Eliquis] 5 mg PO BID 09/22/17 Atorvastatin Calcium 40 mg PO QHS 09/22/17 Famotidine 20 mg PO BID 09/22/17 Hydrocodone/Acetaminophen 1 each PO Q4H PRN PRN 09/22/17 [Hydrocodon-Acetaminophen 5-325] Lidocaine [Lidoderm Patch] 1 patch TOPICAL DAILY 09/22/17 Melatonin 3 mg PO QHS 09/22/17 Ondansetron [Zofran Odt] 4 mg PO Q4H PRN PRN 09/22/17 Polyethylene Glycol 3350 [Miralax] 17 gm PO DAILY 09/22/17 Trazodone HCl 50 mg PO QHS 09/22/17 Surgical History: - - Tracheostomy (discontinued), PEG tube (discontinued), right hemicraniectomy. Psychiatric History: Depression Lives: Spouse/ Significant Other Smoking Status: Never smoker Tobacco Use: Non-smoker Alcohol: None Drugs: None - *Family History Maternal History Items: Heart Disease Paternal History Items: Heart Disease Review of Systems Constitutional: Denies: Chills, Fever, Weight Change HEENT: Denies: Head Aches, Sinus Congestion, Sinus Drainage Cardiovascular: Denies: Chest Pain, Palpitations Respiratory: Denies: Cough, Shortness of breath at rest, Sputum production Gastrointestinal: Denies: Abdominal Pain, Nausea, Vomiting Genitourinary: Denies: Dysuria Musculoskeletal: Reports: Joint Pain - Left hip., Shoulder Pain - Left.. Denies: Joint Tenderness Skin: Denies: Rash, Wounds Neurological: Denies: Numbness, Tingling, Focal weakness Psychiatric: Denies: Anxiety, Depression, Homicidal Ideations, Suicidal Ideations Hematologic/ Lymphatic: Denies: Easy Bruising, Easy Bleeding Patient Problems: Active and Suspected Problems Pneumonia (Acute) Acute respiratory failure (Acute) Hemorrhagic cerebrovascular accident (CVA) (Acute) Insomnia (Acute) Thrush (Acute) Constipation (Acute) Shortness of breath (Acute) Left hemiplegia (Acute) Right middle cerebral artery stroke (Acute) - Physical Exam General: Alert, Oriented x3, Cooperative HEENT: Atraumatic, PERRLA, EOMI, Normocephalic Neck: Supple, No JVD, Negative Carotid Bruits Lungs: Clear to auscultation, Normal air movement Cardiovascular: Regular rate, No murmurs Abdomen: Bowel Sounds Present, Soft, Non Tender Extremities: No edema, Capillary Refill Less than 3 Seconds Skin: No rashes, No breakdown Musculoskeletal: No Tenderness to Palpation of Joints or Extremities Neurological: Cranial nerves II-XII grossly intact, - - Left sided neglect, Left hemiplegia. Psych/Mental Status: Normal Affect, Appropriate Vital Signs Temp Pulse Resp BP Pulse Ox 98.3 F 105 H 18 128/83 H 95 10/18/17 16:00 10/18/17 16:00 10/18/17 16:00 10/18/17 16:10/18/17 16:00 Oxygen Delivery Method Room Air Weight: 78.585 kg Body Mass Index (BMI) 23.1 Intake and Output for Last 24 Hours 10/16/17 10/17/17 10/18/17 23:59 23:59 23:59 Intake Total 600 / 600 540 / 540 480 / 480 Output Total 425 / 425 Balance 175 / 175 540 / 540 480 / 480 Assessment/Plan Active and Suspected Problems Pneumonia (Acute) Acute respiratory failure (Acute) Hemorrhagic cerebrovascular accident (CVA) (Acute) Insomnia (Acute) Thrush (Acute) Constipation (Acute) Shortness of breath (Acute) Left hemiplegia (Acute) Right middle cerebral artery stroke (Acute) 62 year old male with below past medical history hospitalized for right MCA stroke, 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 Trach, PEG discontinued. Debility - PT/OT, Referral made to [facility] rehab, if appropriate, will transfer resident to [facility]. Cognition - ST. Pain - Tylenol 1000MG Q8H PRN mild pain, Oxycodone 10MG Q4H PRN severe pain. Bowel - Miralax 17GM daily, Add Senna/colace 2 tablets BID, Dulcolax 10MG ND daily PRN. DVT prophylaxis - Not necessary, already on Eliquis. Right craniotomy - needs to have right skull replacement surgery at [facility]. Stroke - Eliquis 5MG twice daily. Hypertension - controlled, Losartan 100MG daily. Hyperlipidemia - Atorvastatin 40MG QHS. GERD - Famotidine 20MG BID. Left shoulder, left hip pain - Lidoderm patch 1/2 patch left shoulder, 1/2 patch left shoulder, Gabapentin 300MG TID, Bengay TID PRN. Insomnia - Melatonin 3MG QHS, Trazodone 50MG QHS. Nausea - Zofran 4MG Q4H PRN. Skin irritation - Calmoseptine TID bilateral buttocks. Tinea Corporis - Nystatin BID groin.
--- NOTE | 2017-10-18 19:02 | PN_ITS ---
Subjective: Resident seen in room, sitting in chair. He had hard BM today, will increase stool softeners. His only complaint is of the left shoulder, left hip pain which has been difficult to control, but the pain is tolerable. His mood is okay. Vitals/I&O's: Vital Signs Temp Pulse Resp BP Pulse Ox 98.3 F 105 H 18 128/83 H 95 10/18/17 16:00 10/18/17 16:00 10/18/17 16:00 10/18/17 16:00 10/18/17 16:00 Oxygen Delivery Method Room Air Weight: 78.585 kg Body Mass Index (BMI) 23.1 Intake and Output for Last 24 Hours 10/16/17 10/17/17 10/18/17 23:59 23:59 23:59 Intake Total 600 / 600 540 / 540 480 / 480 Output Total 425 / 425 Balance 175 / 175 540 / 540 480 / 480 Past Medical History Past Medical History (Chronic Problems): Chronic Problems Chronic pain (Chronic) Hyperlipidemia (Chronic) Headache (Chronic) Atrial fibrillation with RVR (Chronic) Atrial fibrillation (Chronic) Hypertension (Chronic) Neuropathic pain (Chronic) Major depression (Chronic) Allergies No Known Allergies Allergy (Verified 09/22/17 18:57) Home Medications: Ambulatory Orders Medication Instructions Recorded Acetaminophen 650 mg PO Q6H PRN 09/22/17 Apixaban [Eliquis] 5 mg PO BID 09/22/17 Atorvastatin Calcium 40 mg PO QHS 09/22/17 Famotidine 20 mg PO BID 09/22/17 Hydrocodone/Acetaminophen 1 each PO Q4H PRN PRN 09/22/17 [Hydrocodon-Acetaminophen 5-325] Lidocaine [Lidoderm Patch] 1 patch TOPICAL DAILY 09/22/17 Melatonin 3 mg PO QHS 09/22/17 Ondansetron [Zofran Odt] 4 mg PO Q4H PRN PRN 09/22/17 Polyethylene Glycol 3350 [Miralax] 17 gm PO DAILY 09/22/17 Trazodone HCl 50 mg PO QHS 09/22/17 Surgical History: - - Tracheostomy (discontinued), PEG tube (discontinued), right hemicraniectomy. Psychiatric History: Depression Lives: Spouse/ Significant Other Smoking Status: Never smoker Tobacco Use: Non-smoker Alcohol: None Drugs: None - *Family History Maternal History Items: Heart Disease Paternal History Items: Heart Disease Review of Systems Constitutional: Denies: Chills, Fever, Weight Change HEENT: Denies: Head Aches, Sinus Congestion, Sinus Drainage Cardiovascular: Denies: Chest Pain, Palpitations Respiratory: Denies: Cough, Shortness of breath at rest, Sputum production Gastrointestinal: Denies: Abdominal Pain, Nausea, Vomiting Genitourinary: Denies: Dysuria Musculoskeletal: Reports: Joint Pain - Left hip., Shoulder Pain - Left.. Denies : Joint Tenderness Skin: Denies: Rash, Wounds Neurological: Denies: Numbness, Tingling, Focal weakness Psychiatric: Denies: Anxiety, Depression, Homicidal Ideations, Suicidal Ideations Hematologic/ Lymphatic: Denies: Easy Bruising, Easy Bleeding Patient Problems: Active and Suspected Problems Pneumonia (Acute) Acute respiratory failure (Acute) Hemorrhagic cerebrovascular accident (CVA) (Acute) Insomnia (Acute) Thrush (Acute) Constipation (Acute) Shortness of breath (Acute) Left hemiplegia (Acute) Right middle cerebral artery stroke (Acute) - Physical Exam General: Alert, Oriented x3, Cooperative HEENT: Atraumatic, PERRLA, EOMI, Normocephalic Neck: Supple, No JVD, Negative Carotid Bruits Lungs: Clear to auscultation, Normal air movement Cardiovascular: Regular rate, No murmurs Abdomen: Bowel Sounds Present, Soft, Non Tender Extremities: No edema, Capillary Refill Less than 3 Seconds Skin: No rashes, No breakdown Musculoskeletal: No Tenderness to Palpation of Joints or Extremities Neurological: Cranial nerves II-XII grossly intact, - - Left sided neglect, Left hemiplegia. Psych/Mental Status: Normal Affect, Appropriate Vital Signs Temp Pulse Resp BP Pulse Ox 98.3 F 105 H 18 128/83 H 95 10/18/17 16:00 10/18/17 16:00 10/18/17 16:00 10/18/17 16:10/18/17 16:00 Oxygen Delivery Method Room Air Weight: 78.585 kg Body Mass Index (BMI) 23.1 Intake and Output for Last 24 Hours 10/16/17 10/17/17 10/18/17 23:59 23:59 23:59 Intake Total 600 / 600 540 / 540 480 / 480 Output Total 425 / 425 Balance 175 / 175 540 / 540 480 / 480 Assessment/Plan Active and Suspected Problems Pneumonia (Acute) Acute respiratory failure (Acute) Hemorrhagic cerebrovascular accident (CVA) (Acute) Insomnia (Acute) Thrush (Acute) Constipation (Acute) Shortness of breath (Acute) Left hemiplegia (Acute) Right middle cerebral artery stroke (Acute) 62 year old male with below past medical history hospitalized for right MCA stroke, 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 Trach, PEG discontinued. * Debility - PT/OT, Referral made to [facility] rehab, if appropriate, will transfer resident to [facility]. * Cognition - ST. * Pain - Tylenol 1000MG Q8H PRN mild pain, Oxycodone 10MG Q4H PRN severe pain. * Bowel - Miralax 17GM daily, Add Senna/colace 2 tablets BID, Dulcolax 10MG PA daily PRN. * DVT prophylaxis - Not necessary, already on Eliquis. * Right craniotomy - needs to have right skull replacement surgery at [facility]. * Stroke - Eliquis 5MG twice daily. * Hypertension - controlled, Losartan 100MG daily. * Hyperlipidemia - Atorvastatin 40MG QHS. * GERD - Famotidine 20MG BID. * Left shoulder, left hip pain - Lidoderm patch 1/2 patch left shoulder, 1/2 patch left shoulder, Gabapentin 300MG TID, Bengay TID PRN. * Insomnia - Melatonin 3MG QHS, Trazodone 50MG QHS. * Nausea - Zofran 4MG Q4H PRN. * Skin irritation - Calmoseptine TID bilateral buttocks. * Tinea Corporis - Nystatin BID groin.
[2017-10-18] MEDS: MELATONIN 3 MG TABLET PO (21:43)
[2017-10-18] MEDS: traZODone 50 MG Tablet PO (21:43)
[2017-10-18] MEDS: Atorvastatin Calcium 40 MG Tablet PO (21:43)
[2017-10-19] MEDS: Lidocaine 5% Patch 1 PATCH TOPICAL (04:47)
[2017-10-19] MEDS: Polyethylene Glycol 3350 17 GM PACKET PO (04:47)
[2017-10-19] MEDS: Losartan Potassium 100 MG Tablet PO (04:49)
[2017-10-19] MEDS: APIXABAN 5 MG TABLET PO ×2 (04:49→16:55)
[2017-10-19] MEDS: Nystatin Powder 15gm Bottle 1 APPLIC TOPICAL ×2 (04:50→21:46)
[2017-10-19] MEDS: Famotidine 20 MG Tablet PO ×2 (04:50→16:55)
[2017-10-19] MEDS: Menthol/Lanolin/Calamine/Znox 113 GM Tube 1 APPLIC TOPICAL ×2 (04:50→21:46)
[2017-10-19] MEDS: Senna/Docusate Sodium 1 Tablet 2 TABLET PO ×2 (04:50→16:55)
[2017-10-19] MEDS: Gabapentin 300 MG Capsule PO ×3 (07:33→16:55)
--- NOTE | 2017-10-19 14:37 | MDS.RN ---
Information for the mds was obtained from review of the clinical record, interview of resident, staff, and direct observation of resident's care.
--- NOTE | 2017-10-19 15:00 | CASEMGMT ---
Social Work Following up with [facility] and resident/resident spouse on referral to [facility]. [facility] reporting that resident would qualify for services but insurance would need to approve for services to be covered. Resident spouse is aware of [facility] being able to accept resident and is currently going to meet with a [facility] billing representative today. Resident spouse to meet with this psychotherapist social worker on 10/20/17 to discuss what resident and resident spouse would like to do. Resident does have an insurance update due tomorrow and resident spouse is expressing concern about returning home with resident. Resident and resident spouse are continue to not be open to a intermediate placement for an extended time. Support given. Will continue to follow. Christal TERRAZAS, CLEAN OUT DRILLER
[2017-10-19 16:00] VITALS: BP 134/77; PULSE 86; RESP 18; TEMP 37.2; O2SAT 93
[2017-10-19] MEDS: Acetaminophen 500 MG Tablet 1000 MG PO (17:53)
[2017-10-19] MEDS: oxyCODONE 5 MG Tablet 10 MG PO (21:45)
[2017-10-19] MEDS: traZODone 50 MG Tablet PO (21:45)
[2017-10-19] MEDS: Atorvastatin Calcium 40 MG Tablet PO (21:45)
[2017-10-19] MEDS: MELATONIN 3 MG TABLET PO (21:46)
[2017-10-19 22:00] VITALS: O2SAT 98
[2017-10-20] MEDS: oxyCODONE 5 MG Tablet 10 MG PO ×2 (06:50→13:40)
[2017-10-20] MEDS: Losartan Potassium 100 MG Tablet PO (06:50)
[2017-10-20] MEDS: Famotidine 20 MG Tablet PO ×2 (06:50→17:22)
[2017-10-20] MEDS: APIXABAN 5 MG TABLET PO ×2 (06:51→17:22)
[2017-10-20] MEDS: Gabapentin 300 MG Capsule PO ×3 (06:51→17:22)
[2017-10-20] MEDS: Lidocaine 5% Patch 1 PATCH TOPICAL (06:51)
[2017-10-20] MEDS: Polyethylene Glycol 3350 17 GM PACKET PO (06:51)
[2017-10-20] MEDS: Senna/Docusate Sodium 1 Tablet 2 TABLET PO ×2 (06:51→17:22)
[2017-10-20] MEDS: Menthol/Lanolin/Calamine/Znox 113 GM Tube 1 APPLIC TOPICAL ×3 (06:58→21:35)
[2017-10-20] MEDS: Nystatin Powder 15gm Bottle 1 APPLIC TOPICAL ×2 (06:58→21:35)
--- NOTE | 2017-10-20 12:40 | CASEMGMT ---
Insurance Clinical information faxed. Pending continued stay approval at this time. Auth#[id number] Christal TERRAZAS, GREENS CUTTER
[2017-10-20 16:00] VITALS: BP 114/90; PULSE 74; RESP 20; TEMP 36.9; O2SAT 95
--- NOTE | 2017-10-20 17:11 | CHAPLAIN ---
Type of Pastoral Visit ___ Initial Visit _x__ Follow-up Visit ___ On-call Visit ___ General Patient Visit ___ Spiritual Assessment ___ Family Conference ___ Bereavement ___ Rapid Response ___ Code Blue ___ Other (describe below) Pastoral Care Referral From _x__ Patient ___ Family ___ Nurse ___ Physician ___ Principal Solutions Architect ___ Slat Basket Maker ___ Other (describe below) Sacrament/Intervention _x__ Active listening ___ Anointing ___ Jainism ___ Bereavement ___ Communion _x__ Nessa exploration ___ _x__ Life review _x__ Prayer ___ Reconciliation ___ Sacrament of Sick _x__ Supportive presence ___ Wedding ___ Other (describe below) Pastoral Comments
[2017-10-20] MEDS: traZODone 50 MG Tablet PO (21:35)
[2017-10-20] MEDS: Atorvastatin Calcium 40 MG Tablet PO (21:35)
[2017-10-20] MEDS: MELATONIN 3 MG TABLET PO (21:35)
[2017-10-21] MEDS: Menthol/Lanolin/Calamine/Znox 113 GM Tube 1 APPLIC TOPICAL ×3 (04:47→22:51)
[2017-10-21] MEDS: Lidocaine 5% Patch 1 PATCH TOPICAL (04:48)
[2017-10-21] MEDS: Senna/Docusate Sodium 1 Tablet 2 TABLET PO ×2 (04:48→17:49)
[2017-10-21] MEDS: Losartan Potassium 100 MG Tablet PO (04:48)
[2017-10-21] MEDS: Nystatin Powder 15gm Bottle 1 APPLIC TOPICAL ×2 (04:48→22:51)
[2017-10-21] MEDS: Famotidine 20 MG Tablet PO ×2 (04:48→17:49)
[2017-10-21] MEDS: APIXABAN 5 MG TABLET PO ×2 (04:48→17:48)
[2017-10-21] MEDS: Polyethylene Glycol 3350 17 GM PACKET PO (04:49)
[2017-10-21 06:00] LABS: Absolute Lymphocyte Count 1.33 X10^3/ul (0.83-4.51); Absolute Neutrophil Count 2.4 X10^3/uL (2.0-7.7); Basophil# 0.02 X10^3/uL; Basophil% 0.5 % (0-1); Eosinophil# 0.09 X10^3/uL; Hematocrit 40.2 % (40-54); Hemoglobin 13.5 g/dl (13.0-16.5); Lymphocyte # 1.33 X10^3/ul (4.0); Mean Corp Hgb Conc 33.6 g/gl (32-36); Mean Corpuscular Hgb 30.7 pg (27.0-32.0); Mean Corpuscular Volume 91.4 fL (80-94); Mean Platelet Vol. 10.2 fl (6.2-12.0); Monocyte# 0.59 X10^3/uL; Monocyte% 13.3 % (0-10); Neutrophil # 2.39 X10^3/uL (2.7-7.7); Neutrophil % 53.7 % (47-70); Platelet Count 186 K/mm3 (150-450); RBC Distribution Width CV 12.6 % (11.6-14.6); White Blood Count 4.4 K/mm3 (4.4-11.0)
[2017-10-21 06:02] LABS: POSITIVE COUNT NO; POSITIVE DIFFERENTIAL NO; POSITIVE MORPHOLOGY NO
[2017-10-21] MEDS: oxyCODONE 5 MG Tablet 10 MG PO ×4 (06:19→22:46)
[2017-10-21 06:22] LABS: Anion Gap 7 (5-15); BUN 13 mg/dL (7-18); BUN/Creat Ratio 14.5 RATIO (10-20); Calcium,Total 10.1 mg/dL (8.5-10.1); Chloride 102 mmol/L (98-107); EST Glomerular Filtration Rate 90 mL/min (>60); Est Glom Filt Rate - Afr Amer 109 mL/min (>60); Estimated Creatinine Clearance 92.17 ml/min; Glucose 111 mg/dL (74-106); Potassium 3.6 mmol/L (3.5-5.1); Sodium Level 141 mmol/L (136-145)
[2017-10-21] MEDS: Acetaminophen 500 MG Tablet 1000 MG PO ×2 (08:18→17:57)
[2017-10-21] MEDS: Gabapentin 300 MG Capsule PO ×3 (08:19→17:48)
--- NOTE | 2017-10-21 10:00 | CASEMGMT ---
Social Work Spoke with resident and resident spouse. This social service manager communicating that continued stay has been denied by insurance with a last cover day of 10/21/17 and discharge or resident financial responsibility to begin on 10/22/17. Resident and resident spouse are not agreeable to decision and are requesting for an appeal to be sent. This social service manager collaborating on discharge plan in the event that an appeal is not won. Resident spouse requesting for this social service manager to look into the option of [facility] as resident spouse has visited and would be agreeable to resident transitioning to [facility]. Resident spouse also aware that insurance would need to approve [facility]. If [facility] does not work and an appeal is not won resident and resident spouse plan for resident to discharge home with spouse. Resident spouse voicing concern of being able to manage resident needs within the home. This social service manager communicating that an option would be for resident to transition to an extended care facility or private pay in current facility. Resident and resident spouse are not open to fpc placement or staying in current facility under private pay. Resident and resident spouse are voicing to have a need for a wheelchair and hospital bed to be set up in the event that resident discharges home. Emotional support given. Appeal initiated with [facility]. Telephone call to [facility] to being referral process. Clinical information faxed. [facility] to get back in contact with this social service manager. Will set up medical equipment through [facility] when order are obtained. Proposed discharge date: 10/22/17 pending appeal. PLAN: Unsure at this time - possible continued stay vs. [facility] vs. home with spouse and home health services. Christal TERRAZAS, AVIONICS MANAGER
--- NOTE | 2017-10-21 10:39 | CASEMGMT ---
Insurance Continued stay denied with a last cover day of 10/21/17 and resident financial responsibility or discharge on 10/22/17. Auth#[id number] Christal TERRAZAS, BEEF SPLITTER
[2017-10-21] MEDS: Ondansetron ODT 4 MG Tablet PO (14:11)
--- NOTE | 2017-10-21 15:52 | CASEMGMT ---
Addendum entered by Christal Lopez 10/21/17 15:57: In the event that resident does discharge to [facility] or other nursing facility resident would discharge under intermediate level of care and resident is aware that it would be private pay. Original Note: Social Work Collaborating further with resident and resident spouse. Resident and resident spouse are now open to looking into possible care home placement. Resident requesting for this high school social studies teacher to make a referral to [facility]. This high school social studies teacher utilizing supportive counseling. Telephone call to the [facility]. This high school social studies teacher making referral. Clinical information faxed. Proposed discharge date: 10/22/17 PLAN: Discharge to ECF vs. home vs. [facility] - still pending appeal. Christal TERRAZAS, EMERGENCY SERVICES DISPATCHER
[2017-10-21 15:56] VITALS: BP 97/72; PULSE 90; RESP 18; TEMP 36.6; O2SAT 97
[2017-10-21] MEDS: Atorvastatin Calcium 40 MG Tablet PO (22:43)
[2017-10-21] MEDS: traZODone 50 MG Tablet PO (22:43)
[2017-10-21] MEDS: MELATONIN 3 MG TABLET PO (22:43)
[2017-10-22] MEDS: APIXABAN 5 MG TABLET PO (06:28)
[2017-10-22] MEDS: Polyethylene Glycol 3350 17 GM PACKET PO (06:29)
[2017-10-22] MEDS: Lidocaine 5% Patch 1 PATCH TOPICAL (06:29)
[2017-10-22] MEDS: Senna/Docusate Sodium 1 Tablet 2 TABLET PO (06:29)
[2017-10-22] MEDS: Menthol/Lanolin/Calamine/Znox 113 GM Tube 1 APPLIC TOPICAL ×2 (06:29→11:38)
[2017-10-22] MEDS: Losartan Potassium 100 MG Tablet PO (06:29)
[2017-10-22] MEDS: Famotidine 20 MG Tablet PO (06:29)
[2017-10-22] MEDS: Nystatin Powder 15gm Bottle 1 APPLIC TOPICAL (06:30)
[2017-10-22] MEDS: Gabapentin 300 MG Capsule PO ×2 (08:07→11:38)
--- NOTE | 2017-10-22 09:07 | CASEMGMT ---
Social Work [facility] here to assess resident for level of care at this time. Pending approval still. Still pending appeal with insurance. [facility] to get back in contact with this social worker psychiatric on status. Resident and resident family aware that, at this time if resident would stay past today that resident would be financially responsible. Support given. Proposed discharge date: 10/23/07 PLAN: [facility] vs. [facility] vs. home vs. winning appeal. Will continue to follow. Christal TERRAZAS, VOCATIONAL NURSING INSTRUCTOR
--- NOTE | 2017-10-22 10:09 | CASEMGMT ---
Social Work [facility] is communicating to not be able to meet resident needs at this time due to staffing. Speaking with resident and resident spouse in room. Resident and resident spouse choosing to continue with stay through the weekend as no response has been obtained from appeal at this time. Resident and resident spouse are aware of possible financial responsibility. Resident spouse planning to look into other long term options, a list of long term was provided. Support given. Pending appeal at this time, pending approval from [facility]. Will continue to follow. Christal TERRAZAS, OPERATIONS PROJECT MANAGER
[2017-10-22] MEDS: oxyCODONE 5 MG Tablet 10 MG PO (11:37)
[2017-10-22] MEDS: Ondansetron ODT 4 MG Tablet PO (11:38)
--- NOTE | 2017-10-22 15:07 | PCM.TXEXTCAR ---
- Diet 09/22/17 16:59 Diet: Regular Diet Is pt able to select menu?: Yes Diet Comments: cardiac diet, NO STRAWS - Routine Orders/Code Status Suppository Type: Dulcolax 10mg Suppository Frequency: Daily PRN Code Status: Full Code - Wound(s) Rt side of head Wound Type: Surgical Incision - Therapies Weight Bearing: Weight bearing as tolerated Extremity Affected:: Bilateral Lower Physical Therapy: Eval and Treat Occupational Therapy: Eval and Treat Speech Therapy: Eval and Treat - Problem/Diagnosis (1) Right middle cerebral artery stroke Status: Acute Current Visit: Yes (2) Hemorrhagic cerebrovascular accident (CVA) Status: Acute Current Visit: Yes (3) Acute respiratory failure Status: Acute Current Visit: Yes (4) Pneumonia Status: Acute Current Visit: Yes (5) Atrial fibrillation Status: Chronic Current Visit: Yes (6) Atrial fibrillation with RVR Status: Chronic Current Visit: Yes (7) Headache Status: Chronic Current Visit: Yes (8) Hyperlipidemia Status: Chronic Current Visit: Yes (9) Chronic pain Status: Chronic Current Visit: Yes (10) Major depression Status: Chronic Current Visit: Yes (11) Neuropathic pain Status: Chronic Current Visit: Yes (12) Left hemiplegia Status: Acute Current Visit: Yes (13) Hypertension Status: Chronic Current Visit: Yes (14) Shortness of breath Status: Acute Current Visit: Yes (15) Constipation Status: Acute Current Visit: Yes (16) Thrush Status: Acute Current Visit: Yes (17) Insomnia Status: Acute Current Visit: Yes - Allergies/Procedures Done in Hospital Allergies/Adverse Reactions: Allergies No Known Allergies Allergy (Verified 09/22/17 18:57) - Type of Care/Length of Stay Estimated LOS: More Than 30 Days Type of Care Needed: Intermediate Rehab Potential: Fair Prognosis: Fair - Additional Orders/Day of Discharge Day of Discharge: 10/22/17 - Dietary and Speech Recommendations Dietitian Recommendations/Changes: Rec diet change to Cardiac d/t pmhx - Follow Up Care Primary Care Physician: Kristofer Corrigan MD [Primary Care Provider] - Please follow up with your Primary Care Physician in: 1 week. Please Follow Up With: Dr Ly When: 2 weeks. Please Follow Up With: Dr Russo When: 2 weeks.
--- NOTE | 2017-10-22 15:10 | PCM.DC.SUM ---
Discharge Date and Diagnosis - Problem List Patient Problems: Active and Suspected Problems Pneumonia (Acute) Acute respiratory failure (Acute) Hemorrhagic cerebrovascular accident (CVA) (Acute) Insomnia (Acute) Thrush (Acute) Constipation (Acute) Shortness of breath (Acute) Left hemiplegia (Acute) Right middle cerebral artery stroke (Acute) Date of Admission: 09/22/17 Date of Discharge: 10/22/17 - Primary Discharge Diagnosis Active and Suspected Problems Pneumonia (Acute) Acute respiratory failure (Acute) Hemorrhagic cerebrovascular accident (CVA) (Acute) Insomnia (Acute) Thrush (Acute) Constipation (Acute) Shortness of breath (Acute) Left hemiplegia (Acute) Right middle cerebral artery stroke (Acute) - Secondary Discharge Diagnosis Chronic Problems Chronic pain (Chronic) Hyperlipidemia (Chronic) Headache (Chronic) Atrial fibrillation with RVR (Chronic) Atrial fibrillation (Chronic) Hypertension (Chronic) Neuropathic pain (Chronic) Major depression (Chronic) Hospital Course and Treatment Imaging Results: Clinical Impression(s) from Imaging Studies Shoulder X-Ray 09/24/17 15:10 IMPRESSION: Degenerative changes of the acromioclavicular joint. Electronically Signed: Eb Rogel MD at 15:30 EST Tel [phone], Service support , Clinical Impression(s) from Imaging Studies Shoulder X-Ray 09/24/17 15:10 IMPRESSION: Degenerative changes of the acromioclavicular joint. Electronically Signed: Eb Rogel MD at 15:30 EST Tel [phone], Service support , Labs (Last 48 Hours) 10/21/17 10/21/17 05:25 05:25 WBC 4.4 RBC 4.40 L Hgb 13.5 Hct 40.2 MCV 91.4 MCH 30.7 MCHC 33.6 RDW 12.6 RDW Differential 41.0 Plt Count 186 MPV 10.2 Immature Gran % (Auto) 0.500 Neut % (Auto) 53.7 Lymph % (Auto) 30.0 [place] % (Auto) 13.3 H Eos % (Auto) 2.0 Baso % (Auto) 0.5 Absolute Neuts (auto) 2.4 Absolute Lymphs (auto) 1.33 Total Counted Not Reportable Sodium 141 Potassium 3.6 Chloride 102 Carbon Dioxide 32.0 Anion Gap 7 BUN 13 Creatinine 0.90 Estim Creat Clear Calc 92.17 Est GFR (MDRD) Af Amer 109 Est GFR (MDRD) Non-Af 90 BUN/Creatinine Ratio 14.5 Glucose 111 H Calcium 10.1 Operations: None Procedures: None Summary of Care Provided: The patient is a 62 year old Male with below past medical history hospitalized for right MCA stroke, 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 Will need surgery at [facility] 11/08/2017 to replace right 1/2 of skull. Right skull stored at [facility]. Discharge to [facility] in [place], [place]. Discharge at intermediate level of care. Continue Physcial Therapy, Occupational Therapy, Speech Therapy. Discharge Diet: No Restrictions Discharge Activity: Return to Normal Activity, Use Walker Weight Bearing Status: Weight bearing as tolerated Call your doctor if you observe: Fever of 101 or Higher, Inability to urinate, Inability to have a bowel movement, Shortness of breath, Chest pain, Uncontrolled pain Home Medications: Medications to take at Discharge Apixaban [Eliquis] 5 mg PO BID 09/22/17 Atorvastatin Calcium 40 mg PO QHS 09/22/17 Famotidine 20 mg PO BID 09/22/17 Lidocaine [Lidoderm Patch] 1 patch TOPICAL DAILY 09/22/17 Melatonin 3 mg PO QHS 09/22/17 Ondansetron [Zofran Odt] 4 mg PO Q4H PRN PRN 09/22/17 Polyethylene Glycol 3350 [Miralax] 17 gm PO DAILY 09/22/17 Trazodone HCl 50 mg PO QHS 09/22/17 Acetaminophen [Tylenol] 1,000 mg PO Q8H PRN #0 tablet 10/22/17 Gabapentin [Neurontin] 300 mg PO TIDCM capsule 10/22/17 Losartan Potassium [Cozaar] 100 mg PO DAILY tablet 10/22/17 Menthol/Lanolin/Calamine/Znox [Calmoseptine Ointment] 1 applic TOPICAL TID tube 10/22/17 Nystatin Powder [Mycostatin Powder] 1 applic TOPICAL 0600,2200 bottle 10/22/17 Oxycodone [Oxyir] 10 mg PO Q4H PRN PRN #30 tab 10/22/17 Senna/Docusate Sodium [Senokot-S] 2 tablet PO BID tablet 10/22/17 Following Prescrptions Were Given to Patient: Oxycodone [Oxyir] 10 mg PO Q4H PRN PRN #30 tab PRN Reason: Severe Pain (6-06/01) Primary Care Physician: Kirstofer Corrigan MD [Primary Care Provider] - Please follow up with your Primary Care Physician in: 1 week. Please Follow Up With: Dr Ly When: 2 weeks. Please Follow Up With: Dr Russo When: 2 weeks. Disposition: Asstd Living/Non-Skill NH Minutes spent on discharge:: 35 Patient Condition:: Stable Meaningful Use Info Meaningful Use Diagnoses (Choose all that apply): None applicable
--- NOTE | 2017-10-22 15:15 | DS.PCM_ITS ---
Discharge Date and Diagnosis - Problem List Patient Problems: Active and Suspected Problems Pneumonia (Acute) Acute respiratory failure (Acute) Hemorrhagic cerebrovascular accident (CVA) (Acute) Insomnia (Acute) Thrush (Acute) Constipation (Acute) Shortness of breath (Acute) Left hemiplegia (Acute) Right middle cerebral artery stroke (Acute) Date of Admission: 09/22/17 Date of Discharge: 10/22/17 - Primary Discharge Diagnosis Active and Suspected Problems Pneumonia (Acute) Acute respiratory failure (Acute) Hemorrhagic cerebrovascular accident (CVA) (Acute) Insomnia (Acute) Thrush (Acute) Constipation (Acute) Shortness of breath (Acute) Left hemiplegia (Acute) Right middle cerebral artery stroke (Acute) - Secondary Discharge Diagnosis Chronic Problems Chronic pain (Chronic) Hyperlipidemia (Chronic) Headache (Chronic) Atrial fibrillation with RVR (Chronic) Atrial fibrillation (Chronic) Hypertension (Chronic) Neuropathic pain (Chronic) Major depression (Chronic) Hospital Course and Treatment Imaging Results: Clinical Impression(s) from Imaging Studies Shoulder X-Ray 09/24/17 15:10 IMPRESSION: Degenerative changes of the acromioclavicular joint. Electronically Signed: Eb Rogel MD at 15:30 EST Tel [phone], Service support , Clinical Impression(s) from Imaging Studies Shoulder X-Ray 09/24/17 15:10 IMPRESSION: Degenerative changes of the acromioclavicular joint. Electronically Signed: Eb Rogel MD at 15:30 EST Tel [phone], Service support , Labs (Last 48 Hours) 10/21/17 10/21/17 05:25 05:25 WBC 4.4 RBC 4.40 L Hgb 13.5 Hct 40.2 MCV 91.4 MCH 30.7 MCHC 33.6 RDW 12.6 RDW Differential 41.0 Plt Count 186 MPV 10.2 Immature Gran % (Auto) 0.500 Neut % (Auto) 53.7 Lymph % (Auto) 30.0 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 Will need surgery at [facility] 11/08/2017 to replace right 1/ 2 of skull. Right skull stored at [facility]. Discharge to [facility] in [place], [place]. Discharge at intermediate level of care. Continue Physcial Therapy, Occupational Therapy, Speech Therapy. Discharge Diet: No Restrictions Discharge Activity: Return to Normal Activity, Use Walker Weight Bearing Status: Weight bearing as tolerated Call your doctor if you observe: Fever of 101 or Higher, Inability to urinate, Inability to have a bowel movement, Shortness of breath, Chest pain, Uncontrolled pain Home Medications: Medications to take at Discharge Apixaban [Eliquis] 5 mg PO BID 09/22/17 Atorvastatin Calcium 40 mg PO QHS 09/22/17 Famotidine 20 mg PO BID 09/22/17 Lidocaine [Lidoderm Patch] 1 patch TOPICAL DAILY 09/22/17 Melatonin 3 mg PO QHS 09/22/17 Ondansetron [Zofran Odt] 4 mg PO Q4H PRN PRN 09/22/17 Polyethylene Glycol 3350 [Miralax] 17 gm PO DAILY 09/22/17 Trazodone HCl 50 mg PO QHS 09/22/17 Acetaminophen [Tylenol] 1,000 mg PO Q8H PRN #0 tablet 10/22/17 Gabapentin [Neurontin] 300 mg PO TIDCM capsule 10/22/17 Losartan Potassium [Cozaar] 100 mg PO DAILY tablet 10/22/17 Menthol/Lanolin/Calamine/Znox [Calmoseptine Ointment] 1 applic TOPICAL TID tube 10/22/17 Nystatin Powder [Mycostatin Powder] 1 applic TOPICAL 0600,2200 bottle 10/22/17 Oxycodone [Oxyir] 10 mg PO Q4H PRN PRN #30 tab 10/22/17 Senna/Docusate Sodium [Senokot-S] 2 tablet PO BID tablet 10/22/17 Following Prescrptions Were Given to Patient: Oxycodone [Oxyir] 10 mg PO Q4H PRN PRN #30 tab PRN Reason: Severe Pain (6-06/01) Primary Care Physician: Kristofer Corrigan MD [Primary Care Provider] - Please follow up with your Primary Care Physician in: 1 week. Please Follow Up With: Dr Ly When: 2 weeks. Please Follow Up With: Dr Russo When: 2 weeks. Disposition: Asstd Living/Non-Skill NH Minutes spent on discharge:: 35 Patient Condition:: Stable Meaningful Use Info Meaningful Use Diagnoses (Choose all that apply): None applicable
--- NOTE | 2017-10-22 15:20 | CASEMGMT ---
Social Work Telephone call from [facility] - resident lost appeal. Last cover day continues to be 10/21/17 with a discharge or resident financial responsibility to begin on 10/22/17. Spoke with resident and resident family on room. This socially responsible investment adviser communicating above information. Resident and resident family choosing to discharge on 10/22/17 if a [facility] placement can be set up. Resident and resident spouse requesting for a referral to be sent to [facility] in [place], [place]. Support given. Telephone call to [facility] ([phone])[facility]. This socially responsible investment adviser making referral. [facility] reporting to have an opening. Clinical information faxed. Pending approval. Proposed discharge date: 10/22/17 PLAN: Discharge to [facility]. Will continue to follow. Christal TERRAZAS, LITHOGRAPHIC PRESS OPERATOR APPRENTICE
[2017-10-22 15:38] VITALS: BP 112/74; PULSE 66; RESP 16; TEMP 36.6; O2SAT 94
--- NOTE | 2017-10-22 15:45 | CASEMGMT ---
Social Work Telephone call from [facility], [facility]. [facility] reporting to be able to accept resident. Discharge information faxed along with completed PASRR results. Notified resident and resident spouse. Resident family planning to transport resident at this time. Support given. Proposed discharge date: 10/22/17 PLAN: Discharge to [facility]. Christal TERRAZAS, SUPERVISOR FISH HATCHERY
--- NOTE | 2017-10-22 16:16 | NURSING ---
report called to JAYDA Junior at [facility] in [place].
--- NOTE | 2017-10-22 16:35 | CASEMGMT ---
Insurance Notified insurance of resident discharge on 10/22/17 to [facility]. Auth#[id number] Christal TERRAZAS, PHYSICIAN SUPPORT COORDINATOR
== END 2017-10-22 17:00 | disposition intermediate care facility (04) | DRG 57 ==
PROVIDERS: Admitting Provider Family Medicine Geriatric Medicine; Family Provider Family Medicine; PCP Family Medicine; Visit Provider Family Medicine Geriatric Medicine
DX: I69.354 Hemiplegia and hemiparesis following cerebral infarction affecting left non-dominant side (principal); I48.2 Chronic atrial fibrillation; E78.5 Hyperlipidemia, unspecified; B35.4 Tinea corporis; B37.9 Candidiasis, unspecified; M25.512 Pain in left shoulder; M25.552 Pain in left hip; F32.9 Major depressive disorder, single episode, unspecified; G89.29 Other chronic pain; K21.9 Gastro-esophageal reflux disease without esophagitis; Z79.01 Long term (current) use of anticoagulants; Z79.899 Other long term (current) drug therapy; Z23 Encounter for immunization; I10 Essential (primary) hypertension; G47.00 Insomnia, unspecified; Z87.01 Personal history of pneumonia (recurrent); K59.00 Constipation, unspecified
CPT/HCPCS: 36415; 73030; 80048; 81001; 85025; 87077; 87086; 87088; 87186; 92507; 92523; 97110; 97112; 97116; 97162; 97166; 97530; 97535; 97542; 97802; 90670; 90686